=== PATIENT | male | born 1970 | race Caucasian/White ===

== ENCOUNTER 2018-02-15 12:34 | Inpatient (IN) | payer OTHER ==
[2018-02-15] MEDS ORDERED: NS 1,000 ML IV ONE (13:07)
--- NOTE | 2018-02-15 13:09 | EDPHY ---
H & P Stated Complaint: feeling weak/nausea/buttocks sore/rash Time Seen by Provider: 02/15/18 13:00 HPI/ROS: CHIEF COMPLAINT: Presyncope, gluteal rash, generalized weakness HISTORY OF PRESENT ILLNESS: The patient presents to the ED with a one-week history of positional orthostasis and presyncope. The patient also is having a gluteal rash and complaints of generalized weakness. The patient denies any fever, cough or congestion. The patient denies dysuria. The patient reportedly has been applying topical [id number] creams to his rash. He does have a remote history of a scrotal gangrene infection. The patient has neuropathy in his feet chronically. The patient denies any history of fall or trauma. He denies cough or congestion. He denies additional complaints. REVIEW OF SYSTEMS: A comprehensive 10 point review of systems is otherwise negative aside from elements mentioned in the history of present illness. 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 - Social History Smoking Status: Never smoked - Physical Exam Exam: General Appearance: Obese male, no acute distress Eyes: Pupils equal and round no pallor or injection ENT, Mouth: Mucous membranes moist Respiratory: There are no retractions, lungs are clear to auscultation Cardiovascular: Regular rate and rhythm Gastrointestinal: Abdomen is soft and nontender, no masses, bowel sounds normal Neurological: 5/5 strength all 4 extremities Skin: Evidence of stasis dermatitis to the bilateral lower extremities, evidence of a cellulitis and blistering rash noted to the buttocks query pressure injury Musculoskeletal: Neck is supple nontender Extremities: symmetrical, full range of motion Psychiatric: Patient is oriented X 3, there is no agitation Constitutional: Initial Vital Signs Temperature (C) 36.8 C 02/15/18 12:42 Heart Rate 104 H 02/15/18 12:42 Respiratory Rate 20 02/15/18 12:42 Blood Pressure 152/114 H 02/15/18 12:42 O2 Sat (%) 92 02/15/18 12:42 O2 Delivery Mode Room Air,Heliox Allergies/Adverse Reactions: No Known Allergies Allergy (Unverified 02/15/18 12:41) Home Medications: Medication Instructions Recorded Atorvastatin Calcium [Lipitor 10 10 mg PO DAILY 02/15/18 mg (*)] Carvedilol [Coreg (*)] 12.5 mg PO BIDMEAL 02/15/18 Famotidine [Pepcid 20 MG (*)] 20 mg PO BID 02/15/18 Lisinopril [Zestril 5 mg (*)] 5 mg PO DAILY 02/15/18 Spironolactone [Aldactone 25 MG 25 mg PO DAILY 02/15/18 (*)] Warfarin Sodium [Coumadin 5MG (*)] 5 mg PO DAILY16 02/15/18 Medical Decision Making - Diagnostics EKG Interpretation: EKG: Complete interpretation has been separately recorded in the [email or web address] archive. Summary impression: Sinus rhythm, rate 94 ED Course/Re-evaluation: The patient presents to the ED with orthostatic presyncope. The patient is noted to have an acutely elevated creatinine of 4.3. He has mild hyperkalemia with a potassium of 5.9. I did discuss this with his primary care provider David Alfaro. This is a new finding. The patient is chronically anticoagulated for multiple PE. The patient reports he has had normal urination. Patient had an IV established. He received a L of normal saline. Bladder scan was ordered at 2:15 p.m.. The patient is also noted to have cellulitis from a possible mild pressure injury noted to his gluteal area. The patient will require admission to the hospital. Consultation was made with the hospitalist service at 2:20 p.m.. The patient will be given 30 g of Kayexalate from mild hyperkalemia. He will be admitted to the PCU. The patient has no significant postvoid residual noted on bladder scan in the ED. Differential Diagnosis: Differential diagnosis considered includes acute renal failure, medication side effect, dehydration, arrhythmia, cellulitis - Data Points Laboratory Results: Laboratory Results 02/15/18 13:00 02/15/18 13:00 02/15/18 02/15/18 02/15/18 13:00 13:00 13:00 WBC 9.27 10^3/uL 10^3/uL (3.80-9.50) RBC 3.26 10^6/uL L 10^6/uL (4.40-6.38) Hgb 9.9 g/dL L g/dL (13.7-17.5) Hct 31.4 % L % (40.0-51.0) MCV 96.3 fL fL (81.5-99.8) MCH 30.4 pg pg (27.9-34.1) MCHC 31.5 g/dL L g/dL (32.4-36.7) RDW 16.6 % H % (11.5-15.2) Plt Count 152 10^3/uL 10^3/uL (150-400) MPV 9.4 fL fL (8.7-11.7) Neut % (Auto) 90.1 % H % (39.3-74.2) Lymph % (Auto) 3.2 % L % (15.0-45.0) [place] % (Auto) 6.0 % % (4.5-13.0) Eos % (Auto) 0.1 % L % (0.6-7.6) Baso % (Auto) 0.1 % L % (0.3-1.7) Nucleat RBC Rel Count 0.0 % % (0.0-0.2) Absolute Neuts (auto) 8.35 10^3/uL H 10^3/uL (1.70-6.50) Absolute Lymphs (auto) 0.30 10^3/uL L 10^3/uL (1.00-3.00) Absolute Monos (auto) 0.56 10^3/uL 10^3/uL (0.30-0.80) Absolute Eos (auto) 0.01 10^3/uL L 10^3/uL (0.03-0.40) Absolute Basos (auto) 0.01 10^3/uL L 10^3/uL (0.02-0.10) Absolute Nucleated RBC 0.00 10^3/uL 10^3/uL (0-0.01) Immature Gran % 0.5 % % (0.0-1.1) Immature Gran # 0.05 10^3/uL 10^3/uL (0.00-0.10) RBC/WBC/PLT Morphology TNP Platelet Estimate TNP PT 32.4 SEC H SEC (12.0-15.0) INR 3.18 H (0.83-1.16) Sodium 142 mEq/L mEq/L (135-145) Potassium 5.9 mEq/L H mEq/L (3.3-5.0) Chloride 113 mEq/L H mEq/L (97-110) Carbon Dioxide 11 mEq/l L mEq/l (22-31) Anion Gap 18 mEq/L H mEq/L (8-16) BUN 72 mg/dL H mg/dL (7-23) Creatinine 4.3 mg/dL H mg/dL (0.7-1.3) Estimated GFR 15 Glucose 121 mg/dL H mg/dL (70-100) Calcium 9.4 mg/dL mg/dL (8.5-10.4) Medications Given: Discontinued Medications Sodium Chloride (Ns) 1,000 mls @ 0 mls/hr IV ONCE ONE; Wide Open PRN Reason: Protocol Stop: 02/15/18 13:08 Last Admin: 02/15/18 13:16 Dose: 1,000 mls Departure - Departure Disposition: [facility] Inpatient Acute Clinical Impression: Cellulitis, gluteal, Renal failure, acute, Pre-syncope Condition: Good
[2018-02-15 13:16] LABS: PLATELET COUNT 152 10^3/uL (150-400)
--- NOTE | 2018-02-15 13:29 | CPEKG ---
Heart Rate: 94 RR Interval: 638 P-R Interval: 204 QRSD Interval: 96 QT Interval: 344 QTC Interval: 431 P [place]: 33 QRS [place]: 52 T Wave [place]: 43 EKG Severity - OTHERWISE NORMAL ECG - EKG Impression: SINUS RHYTHM EKG Impression: LOW VOLTAGE IN FRONTAL LEADS Electronically Signed By: Austin Baker 15-Feb-2018 14:59:01
[2018-02-15] MEDS ORDERED: SODIUM POLY SULF 15 GM/60 ML BOTTLE PO ONE (14:28)
[2018-02-15 14:36] LABS: INR 3.18 (0.83-1.16); PROTIME(PATIENT) 32.4 SEC (12.0-15.0)
[2018-02-15] MEDS ORDERED: ONDANSETRON DISINTEGRATING 4 MG TAB PO PRN (14:41)
[2018-02-15] MEDS ORDERED: PROMETHAZINE HCL 25 MG/ML INJ IVP PRN (14:41)
[2018-02-15] MEDS ORDERED: ONDANSETRON 4 MG/2 ML VIAL IVP PRN (14:41)
[2018-02-15] MEDS ORDERED: PROMETHAZINE HCL 25 MG TAB PO PRN (14:41)
[2018-02-15] MEDS ORDERED: NS 1,000 ML IV SCH (14:45)
--- NOTE | 2018-02-15 15:28 | PDGENHP ---
History and Physical - Chief Complaint Acute weakness - History of Present Illness Primary care provider: Dr. Adelfo Alfaro HPI: 47-year-old male presents with acute weakness characterized as generalized , with associated chills, nausea, anorexia, unsteady gait, with onset of symptoms approximately 1 week ago and duration persistent and worsening thereafter. The patient reports that prior to his onset of symptoms, he had otherwise been feeling well, and he reports that he has attempted to maintain good oral intake of liquids. He reports that he has had normal urine output. He reports that his bowel movements have been regular, somewhat constipated. He otherwise denies any fever, cough, sore throat, but does endorse bilateral lower extremity paresthesias which are unchanged from his baseline. He reports that his weakness is exacerbated by attempting to ambulate, resulting in lightheadedness which is exacerbated every time he stands. Even at rest, he currently feels fatigued. He reports taking all of his home medications up to the morning of presentation. He reports that he normally takes 3-4 ibuprofen daily, and consistently does so. Electively, the patient's only medical provider is his primary care provider. The patient does not want to see other medical providers, and after 1 visit [facility], he decided that he did not like the methods of treatment and discontinued his care at that location. History Information - Allergies/Home Medication List Allergies/Adverse Reactions: No Known Allergies Allergy (Unverified 02/15/18 12:41) Home Medications: Atorvastatin Calcium [Lipitor 10 mg (*)] 10 mg PO DAILY 02/15/18 [Last Taken Unknown] Carvedilol [Coreg (*)] 12.5 mg PO BIDMEAL 02/15/18 [Last Taken Unknown] Famotidine [Pepcid 20 MG (*)] 20 mg PO BID 02/15/18 [Last Taken Unknown] Lisinopril [Zestril 5 mg (*)] 5 mg PO DAILY 02/15/18 [Last Taken Unknown] Spironolactone [Aldactone 25 MG (*)] 25 mg PO DAILY 02/15/18 [Last Taken Unknown ] Warfarin Sodium [Coumadin 5MG (*)] 5 mg PO DAILY16 02/15/18 [Last Taken Unknown] I have personally reviewed and updated: family history, medical history, social history, surgical history - Past Medical History CHF (Unclear type, patient reports is been quite sometime since he an echocardiogram), hypertension, pulmonary embolism (In 2012, provoked by critical illness and hospitalization) Additional medical history: Testicular gangrene. MRSA. Peripheral neuropathy - Surgical History Additional surgical history: Testicular and penile excision. Lower extremity incision and drainage of chronic wounds - Family History Additional family history: No family history of end-stage renal disease. Numerous second-degree relatives with prostate cancer - Social History Smoking Status: Never smoked Alcohol Use: None Drug Use: None Additional social history: Resides with his mother, co-dependent for care Review of Systems Review of Systems: ROS: 10pt was reviewed & negative except for what was stated in HPI & below Constitutional: Reports: chills, malaise, weakness Gastrointestinal: Reports: nausea Neurological: Reports: paresthesia Physical Exam Physical Exam: Temp Pulse Resp BP Pulse Ox 36.9 C 89 20 149/101 H 92 02/15/18 15:02 02/15/18 15:02 02/15/18 15:02 02/15/18 15:02 02/15/18 15:02 Constitutional: no apparent distress, not in pain, chronically ill appearing, obese, No uncomfortable Eyes: PERRL, anicteric sclera, EOMI Ears, Nose, Mouth, Throat: moist mucous membranes, hearing normal, ears appear normal, no oral mucosal ulcers Cardiovascular: systolic murmur (i/vi at sternum), edema (1+ bilat le), No irregularly irregular, No tachycardia Respiratory: no respiratory distress, no rales or rhonchi, clear to auscultation Gastrointestinal: normoactive bowel sounds, soft, non-tender abdomen, no palpable masses, distension (morbidly with panus), No guarding Genitourinary: no bladder fullness, other (single urethral outlet without penis) Skin: other (pressure injury and skin sloughing R buttock w/ minimal surrounding erythema) Neurologic: AAOx3, No sensation intact bilaterally (bilat paresthesias distal knees) Psychiatric: interacting appropriately Lab Data & Imaging Review 02/15/18 13:00 02/15/18 13:00 WBC 9.27 10^3/uL (3.80-9.50) 02/15/18 13:00 RBC 3.26 10^6/uL (4.40-6.38) L 02/15/18 13:00 Hgb 9.9 g/dL (13.7-17.5) L 02/15/18 13:00 Hct 31.4 % (40.0-51.0) L 02/15/18 13:00 MCV 96.3 fL (81.5-99.8) 02/15/18 13:00 MCH 30.4 pg (27.9-34.1) 02/15/18 13:00 MCHC 31.5 g/dL (32.4-36.7) L 02/15/18 13:00 RDW 16.6 % (11.5-15.2) H 02/15/18 13:00 Plt Count 152 10^3/uL (150-400) 02/15/18 13:00 MPV 9.4 fL (8.7-11.7) 02/15/18 13:00 Neut % (Auto) 90.1 % (39.3-74.2) H 02/15/18 13:00 Lymph % (Auto) 3.2 % (15.0-45.0) L 02/15/18 13:00 [place] % (Auto) 6.0 % (4.5-13.0) 02/15/18 13:00 Eos % (Auto) 0.1 % (0.6-7.6) L 02/15/18 13:00 Baso % (Auto) 0.1 % (0.3-1.7) L 02/15/18 13:00 Nucleat RBC Rel Count 0.0 % (0.0-0.2) 02/15/18 13:00 Absolute Neuts (auto) 8.35 10^3/uL (1.70-6.50) H 02/15/18 13:00 Absolute Lymphs (auto) 0.30 10^3/uL (1.00-3.00) L 02/15/18 13:00 Absolute Monos (auto) 0.56 10^3/uL (0.30-0.80) 02/15/18 13:00 Absolute Eos (auto) 0.01 10^3/uL (0.03-0.40) L 02/15/18 13:00 Absolute Basos (auto) 0.01 10^3/uL (0.02-0.10) L 02/15/18 13:00 Absolute Nucleated RBC 0.00 10^3/uL (0-0.01) 02/15/18 13:00 Immature Gran % 0.5 % (0.0-1.1) 02/15/18 13:00 Immature Gran # 0.05 10^3/uL (0.00-0.10) 02/15/18 13:00 RBC/WBC/PLT Morphology TNP 02/15/18 13:00 Platelet Estimate TNP 02/15/18 13:00 PT 32.4 SEC (12.0-15.0) H 02/15/18 13:00 INR 3.18 (0.83-1.16) H 02/15/18 13:00 Sodium 142 mEq/L (135-145) 02/15/18 13:00 Potassium 5.9 mEq/L (3.3-5.0) H 02/15/18 13:00 Chloride 113 mEq/L (97-110) H 02/15/18 13:00 Carbon Dioxide 11 mEq/l (22-31) L 02/15/18 13:00 Anion Gap 18 mEq/L (8-16) H 02/15/18 13:00 BUN 72 mg/dL (7-23) H 02/15/18 13:00 Creatinine 4.3 mg/dL (0.7-1.3) H 02/15/18 13:00 Estimated GFR 15 02/15/18 13:00 Glucose 121 mg/dL (70-100) H 02/15/18 13:00 Calcium 9.4 mg/dL (8.5-10.4) 02/15/18 13:00 Visualized and Interpreted EKG results: Yes EKG Interpretation: Positive for: other (NSR w/ low voltage, no QRS widening) Assessment & Plan Assessment: 47-year-old male presenting with acute kidney injury and acute metabolic acidosis, hyperkalemia Plan: 1. Acute kidney injury. New problem this provider, further workup indicated. Evidenced by creatinine 4.3, BUN 72 with resultant metabolic acidosis and hyperkalemia -potential etiology includes reduced renal perfusion secondary to NSAID, KAY- inhibitor, spironolactone, diuretic, possibly with precipitating illness or infection -discussed with Dr. Judith Tatum, she has recommended 2 amps of bicarb, normal saline, agrees with renal ultrasound, holding renal toxic medications and repeating renal panel at 6:00 p.m. -get fractional excretion of urea -monitor I& O, daily weights sign -obtain baseline creatinine level from PCP office 2. Hyperkalemia. Acute, discussed with Dr. Hema Kebede, he has ordered the patient for 30 g of Kayexalate emergency department, will be repeating potassium level at 6:00 p.m., currently normal EKG, monitor on telemetry 3. Metabolic acidosis. Acute, secondary to acute kidney injury, give fluids, 2 amps of bicarb 4. Congestive heart failure. Unclear type, no current evidence of exacerbation but unclear whether patient's cardiac output has recently changed, patient reports that he has not had an echo from his primary care provider quite some time, does not have a clinical biostatistician -get echocardiogram for further evaluation -get outpatient records from PCP office 5. Pressure injury. Present on admission, right buttock, a surrounding erythema potentially cellulitic, but normal white blood cell count -get wound care consult -check procalcitonin, blood cultures -hold on antibiotics, monitor clinically for any evolution of cellulitis 6. Morbid obesity. Increase patient's risk of worsening morbidity and/or mortality, dietary consult for renal diet as well as dietary coaching 7. Hypertension. Chronic, hold patient's KAY inhibitor, spironolactone, continue carvedilol 8. Chronic neuropathy. Continue home medication once reconciled, potentially at lower doses given renal impairment 9. History of pulmonary embolism. Chronically systemically anticoagulated, continue Coumadin and INR monitoring, hold Coumadin this afternoon given that supratherapeutic INR Diet. Renal Prophylaxis. High risk patient, currently on Coumadin Code. Full per patient, mother is POA Disposition. Anticipated discharge uncertain this time, anticipated length stay is greater than 48 hr for reasonable medical necessity including acute kidney injury with high risk comorbid metabolic acidosis, hyperkalemia, pressure injury, morbid obesity.
[2018-02-15] MEDS ORDERED: VANCOMYCIN 2 GM in D5W 500 ML IV SCH (15:30)
[2018-02-15] MEDS ORDERED: SODIUM BICARBONATE 50 MEQ/50 ML SYR IVP ONE ×2 (15:45→16:30)
[2018-02-15] MEDS ORDERED: NICOTINE POLACRILEX 2 MG GUM B PRN (15:50)
--- NOTE | 2018-02-15 16:37 | WOCRNPDOC ---
[facility] Advanced Assessment Note - Skin Integrity Problem, Advanced Assess Left Lower Sacrum Pressure Injury Exudate Amount: Minimal Exudate Color: Reddish/Yellow Exudate Characteristic(s): Serosanguinous Wound Bed Color: Black, Red, Yellow, White Wound Bed Constitution: Red/Bent - Non Granular Tissue (30%), Stable Eschar (70% ) Wound Edges: Not Attached (epithilium continuing to peel off), Irregular Site Measurement - Head-to-Toe Length X Width X Depth (cm): 5.9x9x0.3 Pressure Injury Stage: Unstageable Pressure Injury Present on Admit: Yes Skin Integrity Problem Comment: Unstageable pressure injury to both left and right sides of gluteal cleft, with eschar on the left and open area without eschar on the right. Pressure injury likely because patient states he sits in his recliner a lot at home, and family present in room (daughter and daughter in law) at time of assessment confirmed. Patient was incontinent of liquid stool during assessment, but unknown if this is normal for patient. Orders written for offloading, including side to side turns while in bed and repositioning in chair with cushion. Left wounds open to air due to incontinence. Education provided to patient re: pressure injuries present, the cause of the wounds, treatment, importance of mobility, and plan of care with questions answered. Wound care will round again later this week. Mindy ARELLANO assisted and supervised. Right Proximal Lower Sacrum Pressure Injury Wound Bed Color: Black, Bent, Red, Yellow Wound Bed Constitution: Red/Bent - Non Granular Tissue (70%), Stable Eschar (30% ) Wound Edges: Not Attached, Irregular Site Measurement - Head-to-Toe Length X Width X Depth (cm): 3.6x2.1x0 Pressure Injury Stage: Unstageable Pressure Injury Present on Admit: Yes Skin Integrity Problem Comment: This wound to right lower sacrum is distinct from other pressure injuries of this assessment, but same etiology. Wound care will round again later this week. Mindy ARELLANO assisted and supervised. Right Distal Sacrum Pressure Injury Wound Bed Color: Red, Yellow Wound Bed Constitution: Red/Bent - Non Granular Tissue (85%), Adhered Slough (15 %) Wound Edges: Irregular Site Measurement - Head-to-Toe Length X Width X Depth (cm): 4.1x2.2x0.2 Pressure Injury Stage: Stage 3 Pressure Injury Present on Admit: Yes Skin Integrity Problem Comment: Pressure injury to lower sacrum, same etiology as other reported pressure injuries. No eschar noted on this wound. Wound care will round again this week. Mindy ARELLANO assisted and supervised.
[2018-02-15] MEDS ORDERED: SODIUM BICARBONATE 75 MEQ in 1/2 NS 1,000 ML IV SCH (16:45)
--- NOTE | 2018-02-15 16:47 | PDCONSULT ---
Coating Manager Note: Assessment/Plan: [place]: unknown baseline Cr, up to 4.3 currently with hyperkalemia and acidosis. He continues to have good UOP and denies being oliguric. Unclear etiology although concerning for prerenal in setting of poor oral intake and continued lisinopril and spironolactone. - No emergent need for HD. - Will continue IVFs, will change to 1/2NS with bicarb. - Will check renal US, UA, urine PCR, urine sodium, CK. - Will continue to monitor, repeat labs this evening. - Holding lisinopril, spironolactone and NSAIDs for now. - Avoid hypotension and nephrotoxins. Hyperkalemia: K 5.9, got 1L NS and kayexalate. - Will give 2 amps of bicarb now. - WIll place on IVFs with bicarb. - Will continue to monitor, repeat shortly. Metabolic acidosis: likely due to [place]. - Getting bicarb as above. - WIll check VBG and lactate in am in addition to rechecking BMP. HTN: BP ok for now, holding lisinopril and spironolactone, ok to continue BB, will continue to monitor. Hypervolemia: for now holding diuretics and giving IVFs, agree with getting echo. Thank you for the interesting consult. Nephrology will continue to follow, please call if you have any additional questions or concerns. H & P Stated Complaint: feeling weak/nausea/buttocks sore/rash Time Seen by Provider: 02/15/18 13:00 HPI/ROS: HPI: Mr. Royal is a 47 yo M with h/o CHF, HTN, MRSA, testicular gangrene, and morbid obesity who presented today to ER with complaints of weakness. Pt states that he has been feeling poorly for about two weeks, feeling fatigued and very weak, could not even get up to go to the bathroom at home. He has not been eating or drinking well for a few days, although daughters think it has been longer than that. He denies any rash, synovitis, dizziness, chest pain or dyspnea. He has continued taking his meds at home, including lisinopril, spironolactone, and ibuprofen. He denies any history of renal disease but does not know his baseline kidney function. Here, his Cr is up to 4.3, CO2 down to 11, K up to 5.9. He has been given kayexalate and 1L NS. He states that he had a large urination in ER, had been urinating normally at home except a little darker than usual, no hematuria or dysuria. ROS: positive per HPI and for pain over buttocks, rest of 10-point ROS negative - Personal History Current Tetanus/Diphtheria Vaccine: Unsure - Medical/Surgical History Hx Asthma: No Hx Chronic Respiratory Disease: No Hx Diabetes: No Hx Cardiac Disease: No Hx Renal Disease: No Hx Cirrhosis: No Hx Alcoholism: No Hx HIV/AIDS: No Hx Splenectomy or Spleen Trauma: No Other PMH: gangrene to testicle, PEs, HTN, CHF - Social History Smoking Status: Never smoked - Physical Exam Exam: General: alert and oriented, no acute distress, morbidly obese Eyes; EOMI, PERRL OP: Clear, MMM Neck: supple, no thyromegaly CV: RRR, +2/4 radial and dorsalis pedis pulses, +1 edema BLE Resp: CTA bilat, nonlabored respirations on RA Abd: Soft, NT/ND Neuro; CN II-XII grossly intact, no asterixis Psych: cooperative, appropriate mood and affect Skin: no rash, chronic venostasis changes in both legs, +pressure ulcers noted on buttocks Constitutional: Initial Vital Signs Temperature (C) 36.8 C 02/15/18 12:42 Heart Rate 104 H 02/15/18 12:42 Respiratory Rate 20 02/15/18 12:42 Blood Pressure 152/114 H 02/15/18 12:42 O2 Sat (%) 92 02/15/18 12:42 O2 Delivery Mode Room Air,Heliox Allergies/Adverse Reactions: No Known Allergies Allergy (Unverified 02/15/18 12:41) Home Medications: Medication Instructions Recorded Atorvastatin Calcium [Lipitor 10 10 mg PO DAILY 02/15/18 mg (*)] Carvedilol [Coreg (*)] 12.5 mg PO BIDMEAL 02/15/18 Famotidine [Pepcid 20 MG (*)] 20 mg PO BID 02/15/18 Lisinopril [Zestril 5 mg (*)] 5 mg PO DAILY 02/15/18 Spironolactone [Aldactone 25 MG 25 mg PO DAILY 02/15/18 (*)] Warfarin Sodium [Coumadin 5MG (*)] 5 mg PO DAILY16 02/15/18 Lab and Imaging 02/15/18 13:00 02/15/18 13:00 WBC 9.27 10^3/uL (3.80-9.50) 02/15/18 13:00 RBC 3.26 10^6/uL (4.40-6.38) L 02/15/18 13:00 Hgb 9.9 g/dL (13.7-17.5) L 02/15/18 13:00 Hct 31.4 % (40.0-51.0) L 02/15/18 13:00 MCV 96.3 fL (81.5-99.8) 02/15/18 13:00 MCH 30.4 pg (27.9-34.1) 02/15/18 13:00 MCHC 31.5 g/dL (32.4-36.7) L 02/15/18 13:00 RDW 16.6 % (11.5-15.2) H 02/15/18 13:00 Plt Count 152 10^3/uL (150-400) 02/15/18 13:00 MPV 9.4 fL (8.7-11.7) 02/15/18 13:00 Neut % (Auto) 90.1 % (39.3-74.2) H 02/15/18 13:00 Lymph % (Auto) 3.2 % (15.0-45.0) L 02/15/18 13:00 [place] % (Auto) 6.0 % (4.5-13.0) 02/15/18 13:00 Eos % (Auto) 0.1 % (0.6-7.6) L 02/15/18 13:00 Baso % (Auto) 0.1 % (0.3-1.7) L 02/15/18 13:00 Nucleat RBC Rel Count 0.0 % (0.0-0.2) 02/15/18 13:00 Absolute Neuts (auto) 8.35 10^3/uL (1.70-6.50) H 02/15/18 13:00 Absolute Lymphs (auto) 0.30 10^3/uL (1.00-3.00) L 02/15/18 13:00 Absolute Monos (auto) 0.56 10^3/uL (0.30-0.80) 02/15/18 13:00 Absolute Eos (auto) 0.01 10^3/uL (0.03-0.40) L 02/15/18 13:00 Absolute Basos (auto) 0.01 10^3/uL (0.02-0.10) L 02/15/18 13:00 Absolute Nucleated RBC 0.00 10^3/uL (0-0.01) 02/15/18 13:00 Immature Gran % 0.5 % (0.0-1.1) 02/15/18 13:00 Immature Gran # 0.05 10^3/uL (0.00-0.10) 02/15/18 13:00 RBC/WBC/PLT Morphology TNP 02/15/18 13:00 Platelet Estimate TNP 02/15/18 13:00 PT 32.4 SEC (12.0-15.0) H 02/15/18 13:00 INR 3.18 (0.83-1.16) H 02/15/18 13:00 Sodium 142 mEq/L (135-145) 02/15/18 13:00 Potassium 5.9 mEq/L (3.3-5.0) H 02/15/18 13:00 Chloride 113 mEq/L (97-110) H 02/15/18 13:00 Carbon Dioxide 11 mEq/l (22-31) L 02/15/18 13:00 Anion Gap 18 mEq/L (8-16) H 02/15/18 13:00 BUN 72 mg/dL (7-23) H 02/15/18 13:00 Creatinine 4.3 mg/dL (0.7-1.3) H 02/15/18 13:00 Estimated GFR 15 02/15/18 13:00 Glucose 121 mg/dL (70-100) H 02/15/18 13:00 Calcium 9.4 mg/dL (8.5-10.4) 02/15/18 13:00 Visualized and Interpreted EKG results: Yes EKG Interpretation: Positive for: other (No peaked T waves)
--- NOTE | 2018-02-15 17:00 | PDMN ---
Medical Necessity Medical necessity: Pt meets IP criteria per MD; est los >2 mn for eval/tx of acute kidney injury, metabolic acidosis, hyperkalemia & pressure injury; admit for further workup/monitoring, Wound Care consult, IVFs & therapies; comorbid morbid obesity, PEs, HTN, chronic neuropathy, CHF; per H&P & order 02/15/18
[2018-02-15] MEDS: NICOTINE 21 MG/24 HR PATCH TD SCH (17:11)
[2018-02-15] MEDS: SODIUM BICARBONATE 75 MEQ in 1/2 NS 1,000 ML IV SCH (17:17)
--- NOTE | 2018-02-15 18:01 | WOCRNPDOC ---
WOCRN Advanced Assessment Note - Skin Integrity Problem, Advanced Assess Right Distal Lower Sacrum Pressure Injury Dressing Type: Open to Air Skin Integrity Problem Comment: Left all sacral wounds open to air until tomorrow when patient's Kayexalate may have worn off and stooling will be under control. Discussed plan of care with Erika DA SILVA.
[2018-02-15] MEDS ORDERED: CARVEDILOL 3.125 MG TAB PO ONE (18:22)
--- NOTE | 2018-02-15 18:37 | CPEKG ---
Heart Rate: 105 RR Interval: 571 P-R Interval: 192 QRSD Interval: 96 QT Interval: 356 QTC Interval: 471 P Charlotte: 35 QRS Charlotte: 70 T Wave Charlotte: 63 EKG Severity - ABNORMAL ECG - EKG Impression: SINUS TACHYCARDIA EKG Impression: VENTRICULAR BIGEMINY EKG Impression: LOW VOLTAGE IN FRONTAL LEADS Electronically Signed By: Edwardo Chambers 16-Feb-2018 11:18:04
[2018-02-15 21:26] LABS: CREATINE KINASE 79 IU/L (0-224)
[2018-02-15] MEDS: ATORVASTATIN CALCIUM 10 MG TAB PO SCH (21:53)
[2018-02-15] MEDS ORDERED: HEPARIN 5,000 UNIT/0.5 ML INJ SC SCH (22:00)
[2018-02-16 04:28] LABS: INR 3.15 (0.83-1.16); PROTIME(PATIENT) 32.2 SEC (12.0-15.0)
[2018-02-16 04:31] LABS: PLATELET COUNT 115 10^3/uL (150-400)
[2018-02-16] MEDS: SODIUM BICARBONATE 75 MEQ in 1/2 NS 1,000 ML IV SCH (07:27)
[2018-02-16] MEDS: CARVEDILOL 3.125 MG TAB PO SCH ×2 (10:27→18:09)
[2018-02-16] MEDS: NICOTINE 21 MG/24 HR PATCH TD SCH (10:27)
--- NOTE | 2018-02-16 11:12 | ECHO ---
[email or web address] [address] [address] Main: [phone] Fax: Transthoracic Echocardiogram Name: HAILEE NOLAND MR#: [id number] Study Date: 02/16/2018 Study Time: 09:06 AM Date of : 1970 Age: 47 year(s) Height: 177.8 cm (70 in.) Weight: 148.78 kg (328 lb.) BSA: 2.58 m2 Gender: Male Examination: Echo Indication: Acute SHAWNEE, CHF Image Quality: Contrast: Requested by: Carlos Del Real BP: 123 mmHg/56 mmHg Heart Rate: Rhythm: Indication: Acute SHAWNEE, CHF Procedure Staff Helper Coordinator: Pete Stevens RDCS Reading Physician: Robb Nelson MD Requesting Provider: Conclusions: Normal size left ventricle. No LV hypertrophy. Normal global systolic LV function. EF is 64 %. No regional wall motion abnormality. Normal diastolic LV function. Flattened interventricular septum consistent with right ventricular pressure and/or volume overload free wall. The left atirum is borderline dilated. The mitral valve is normal in appearance and function. There is no mitral valve regurgitation. The aortic valve is normal in appearance and function. There is no aortic valve regurgitation. The pulmonary artery pressure is severely increased. Right ventricular systolic pressure measures 94mmHg. The pulmonic valve is normal in appearance and function. No previous available Measurements: Chambers Valvular Assessment AV/MV Valvular Assessment TV/PV Normal Normal Normal Name Value Range Name Value Range Name Value Range Ao Winifred (MM): 3.3 cm (2.2 cm-3.7 AV Vmax: 1.37 m/s (1 m/s-1.7 TR Vmax: 4.88 mm/s ( - ) cm) m/s) TR PGmax: 89 mmHg ( - ) IVSd (2D): 0.7 cm (0.6 cm-1.1 AV maxP mmHg ( - ) syst. PAP: 94 mmHg ( - ) cm) LVOT Vmax: 0.78 m/s (0.7 m/s-1.1 PV Vmax: 1.10 m/s (0.6 m/s-0.9 LVDd (2D): 5.3 cm (4.2 cm-5.9 m/s) m/s) cm) MV E Vmax: 1.00 m/s ( - ) PV PGmax: 5 mmHg ( - ) LVDs (2D): 3.4 cm (2.1 cm-4 MV A Vmax: 0.80 m/s ( - ) cm) MV E/A: 1.25 ( - ) Patient: HAILEE NOLAND Study Date: 02/16/2018 Page 1 of 2 09:06 AM LVPWd (2D): 1.0 cm (0.6 cm-1 cm) LVEF (2D): 64 (>=54 %) RVDd(2D): 4.8 cm (1.9 cm-3.8 cmmm) Continued Measurements: Chambers Valvular Assessment AV/MV Valvular Assessment TV/PV Name Value Name Value Name Value LADs Lon.1 cm MV E' Septal: 0.06 m/s CVP (est.): 5 mmHg LA Area: 24.9 cm2 MV E/E' Septal: 16.30 LA Volume: 89 ml MV E/E' Lateral: 10.30 LA Volume Index: 34.5 ml/m2 Findings: Left Ventricle: Normal size left ventricle. No LV hypertrophy. Normal global systolic LV function. EF is 64 %. No regional wall motion abnormality. Normal diastolic LV function. Right Ventricle: Mildly to moderately dilated right ventricle. Flattened interventricular septum consistent with right ventricular pressure and/or volume overload free wall. Left Atrium: The left atirum is borderline dilated. Right Atrium: The right atrium is mildly dilated. Mitral Valve: The mitral valve is normal in appearance and function. There is no mitral valve regurgitation. Aortic Valve: The aortic valve is normal in appearance and function. There is no aortic valve regurgitation. Tricuspid Valve: Mild tricuspid regurgitation is present. The pulmonary artery pressure is severely increased. Right ventricular systolic pressure measures 94mmHg. Pulmonic Valve: The pulmonic valve is normal in appearance and function. Aorta: The aorta is normal. Pericardium: No pericardial effusion. (No Signature Object) Patient: HAILEE NOLAND Study Date: 02/16/2018 Page 2 of 2 09:06 AM [id number]
--- NOTE | 2018-02-16 13:41 | HOSPPROG ---
Hospitalist Progress Note Assessment/Plan: 47-year-old presenting with a week of generalized weakness, nausea and unsteady gait. He states his symptoms started with some abnormal bowel movements and abdominal issues which progressed to a point where he could barely get out of bed. He was found to be in renal failure on admission to the hospital. # acute renal failure. Unclear if he has had chronic renal failure in the past as I am unable to find any previous blood work, except for INRs. I suspect his renal failure is a combination of dehydration, hypotension and medications. * Appreciate Nephrology * Continue to hydrate * Avoid nephrotoxins including anti-inflammatories * Hold spironolactone and lisinopril * Continue to monitor creatinine # history of pulmonary embolism on long-term Coumadin followed by Dr. Alfaro * Therapeutic INR # Anemia, unclear etiology. No obvious acute bleeding but patient has has significant bleeding Duodenal ulcer in the recent past. Possible ACD 2/2 renal failure, but I am not sure how long he has had renal failure. * Check iron studies, B12, etc * consider GI eval if heme positive and continues to drop. # severe pulmonary hypertension with RVSP of 94 on echocardiogram, likely due to patient obesity and chronic sleep apnea as well as history of PE * Discussed with Cardiology who will see patient * At this time will hydrate and follow renal function * Perhaps repeat echocardiogram in the future when patient is more stable * He would likely benefit from follow-up with a shop blacksmith however it sounds like he has not wanted to seek care from other medical providers except for his PCP # morbid obesity # coccyx wounds, noted on admission and followed by wound care, the seemed to be fairly large for development over 1 week will continue to have wound care see him and consider surgery if they feel that would be benefits surely to the patient # dyslipidemia on atorvastatin # obstructive sleep apnea. His PCP has attempted to get him a sleep study but the patient has not set that up yet # peripheral neuropathy involving both of his legs # gout # fatty liver disease # noncompliance, patient has not seen his primary care physician in almost 4 years Subjective: Patient new to me and chart reviewed. He admits to only being sick for a week however he looks fairly debilitated I suspect it has been longer than that. Objective: Vital Signs Temp Pulse Resp BP Pulse Ox 36.6 C 80 14 86/53 L 92 02/16/18 11:05 02/16/18 11:05 02/16/18 11:05 02/16/18 11:05 02/16/18 11:50 Laboratory Results 02/16/18 03:35 02/16/18 03:35 02/15/18 02/16/18 02/17/18 05:59 05:59 05:59 Intake Total 2404 Output Total 1100 1 Balance 1304 -1 PT 32.2 SEC (12.0-15.0) H 02/16/18 03:35 INR 3.15 (0.83-1.16) H 02/16/18 03:35 - Physical Exam Constitutional: obese Eyes: PERRL Ears, Nose, Mouth, Throat: moist mucous membranes Cardiovascular: regular rate and rhythym, edema Respiratory: no respiratory distress, reduced air movement Gastrointestinal: soft, non-tender abdomen Skin: warm Neurologic: AAOx3 Psychiatric: interacting appropriately ICD10 Worksheet Patient Problems: Problems Problem Status Onset Cellulitis, gluteal Acute Pre-syncope Acute Renal failure, acute Acute
[2018-02-16] MEDS ORDERED: CANN-EASE 2 GM TUBE TP PRN (16:22)
--- NOTE | 2018-02-16 17:15 | ASMTCMCOM ---
CM Note CM Note Notes: 02/16/2018 Case Management Note Discussed pt during multi disciplinary rounds this morning. Pt admitted with weakness, renal failure and gluteal cellulitis. Pt has stage 3 wound on his sacral area. Awaiting ID consult for possible IV abx d/c needs. Pt will likely have d/c wound care needs. Met w/pt daughter Michelle [phone] and her fiancee Autumn, daughter Mona [phone] and daughter Sadie [phone] this morning. Pt is changing his MDPOA to his three daughters from his mother who per pt and daughters is experiencing memory issues. Provided HealthCare Decision Booklet for pt to fill out, pt declined assistance from case management completing the MDPOA section. Requested pt provide copy to case management to enter into chart once he has filled our form and signed it. Records Management Engineer to visit with pt for assistance. Pt reports living with his mother Sada [phone] and is her primary caregiver. Pt reports independence with ADL's prior to admission. Case management d/c poc: to be determined pending outcome of consults and eval recommendations from PT and OT. Case Management to follow. Date Signed: 02/16/2018 02:25 PM Electronically Signed By:Misti Vick RN
--- NOTE | 2018-02-16 17:16 | GCON ---
[f rep st] CONSULTATION REASON FOR CONSULTATION: I have been asked to do a cardiovascular consult for him for his cardiovasc ular status and multiple complaints. HISTORY OF PRESENT ILLNESS: The patient has been weak for over a month. He also complained of being constipated at home. Then he had one day when he came into the hospital and the chief complaints th en was that his legs were very wobbly and he did not have the strength that he normally enjoys. He i s a fellow who does not like going to doctors. His mother whom he lives with thought he was really s ick several days he actually came to the hospital and he would not come in. She told me that she was begging him to come in or at least let her call the doctor and she would not do that, and that was b ecause he had been vomiting for 2 days by that time, and he has had this constipation. His mother sa salmon he has also been losing weight and he agrees with that. He states that he does not have shortness of breath, but I do not think he is moving much at all, very often or very far and that is limiting him his ability to tell if he is short of breath or not, but clearly, he must be profoundly short of breath. He denies any kind of chest pain, jaw pain, arm, pleuritic chest pain. He denies fever, chi lls, or cough. He denies hemoptysis. He does not have a history of tuberculosis. No history of topher p venous thrombosis. No history of pulmonary embolic disease. He was seen 6 years ago for MRSA at [facility] and it was after that time that he had to retire from work with a disability. He interiano s been taking his medications, but he does not see doctors. He denies any increased swelling in his chronically swollen legs. He denies PND. Denies orthopnea, and when I am visiting with him, he is a ctually lying flat in the hospital bed without any distress. When I look over the records, it says he has unsteady gait and some anorexia for a week before he cam e into the hospital. He has changed the story on that for now, but somewhere along the way is the [facility] answer to this question is to how long he has actually had it. He often is tired however. His cardiac risk factors are positive for hypertension, hyperuricemia, and a family history of premat ure coronary artery disease, and obesity. His cardiac factors are positive for tobacco use, which he uses. Cardiac risk factors according to him are negative for diabetes mellitus, for hyperlipidemia, for smoking history, for any known coronary artery disease. ALLERGIES: None. MEDICATIONS: Include Zestril, Aldactone, warfarin, Pepcid, Coreg, Lipitor. PAST SURGICAL HISTORY: He has had an orchidectomy in the past. He has had surgery for severe infect ions of the lower extremities. FAMILY HISTORY: His maternal great grandmother had a myocardial infarction at age 45. No one else h as a history of early coronary artery disease. REVIEW OF SYSTEMS: A 10-point review of systems negative, except as noted above and in the chart. H is review of systems is positive for history of anemia, history of hepatitis, history of hypernatremi a, history of hyperuricemia times many years, history of cellulitis involving his legs and genitals, longstanding acute and chronic renal failure, and intermittently very significant weight loss of up t o 100 pounds. SOCIAL HISTORY: His mother was born in [place] and she graduated from [employer] in 1955. She is here with him right now. She worked for [employer] for 26 years and she had 5 children. He was t he smallest born child, but now is the biggest child. She raised her family in [place] and they went to [employer]. He worked at [employer] for 26 years and continued to do that until 6 years ago when he had disability due to his infections and his surgical procedures in the lo wer extremities and testicle. There was a very significant MRSA infection at that time. He lives wi th his mother in [place]. He does not exercise. He does not smoke significant amounts of tobacco, but he does chew tobacco. He does not drink significant amounts of alcohol. PHYSICAL EXAMINATION: VITAL SIGNS: Blood pressure is 86/53. Earlier blood pressure was 123/56. Hi s heart rate is 80. Earlier, it was 76. Respiratory rate is 14. He is afebrile. HEENT: Pupils eq ual and reactive. Mucous membranes and mouth moist. NECK: Supple. CARDIOVASCULAR: S1, S2 barely a udible. No clearcut murmurs. LUNGS: Decreased breath sounds bilaterally. Dullness at the bases. BACK: No CVA tenderness. ABDOMEN: Massive, soft, nontender. No clearcut masses. EXTREMITIES: Ch ronic stasis changes with significant peripheral edema, and brawny edema it is. He has multiple lowe r extremity scars. PSYCHIATRIC: No obvious anxiety or depression. NEUROLOGIC: He clearly is weak, deconditioned, but he is moving all extremities and has no obvious cranial neuropathies. No focal n eurologic deficits. LABORATORY/IMAGING: Creatinine was 4.3, down to 3.1, BUN was 72, down to 60. Old records that were reviewed back from 2010, showed that he had acute on chronic respiratory failur e, cellulitis in his legs, orchiectomy, multiple surgical debridements of the lower extremities, weig ht loss of over 100 pounds, and many of the same problems he has now, anemia, weakness, history of go ut. On this admission, his white count is 6.5, hematocrit 25, platelet count 115. Troponin 0.03, th en 0.06. Sodium 144, potassium 4.3, chloride 111, CO2 16, BUN 60, creatinine 3.1 today. As mentione d earlier, BUN on admission was 72 and creatinine was 4.3. Liver function tests were not elevated. Total protein is low at 6 with albumin of 2.9. TSH is 2.45. INR is 3.15. Echocardiogram shows normal LV systolic function, tricuspid regurgitation. RV systolic pressure gutierrez mated at 94 and maybe even higher than that assuming that they did not use an elevated right atrial p ressure, which clearly his right atrial pressure would be elevated at this point. He has a flattened interventricular septum consistent with RV pressure and/or volume overload. Mild to moderately dila ana maria right ventricle, but normal diastolic LV function, normal left ventricular systolic function with ejection fraction of 64%. Chest x-ray shows inspiratory phase is poor. Costophrenic gutters are sharp. No obvious pulmonary e vladislav. Poor quality film. Electrocardiogram shows sinus tachycardia, bigeminy. ASSESSMENT: 1. Chronic respiratory failure. 2. Pulmonary hypertension. 3. Massive obesity. 4. Hypertension. 5. Anemia. 6. Tobacco abuse. 7. Family history of premature coronary artery disease. 8. Chronic peripheral edema. 9. Chronic renal insufficiency. 10. Fatigue. 11. Weakness, history of constipation and vomiting. PLAN: The patient came in because he was getting some constipation. He was vomiting for 2 days, and then, he felt very wobbly. He is traditionally very weak and was acutely ill in that 3 to 5 day per iod. That is being evaluated at this time and when he came in, his creatinine was up to 4.3. It is down to 3.1 now. He does not have an acute coronary syndrome. He does not have systolic congestive heart failure. His diastolic function is quite good, but he does have right heart failure and cor pu lmonale. He does not go to doctors and has not been for years and his mother begs him to go, but he is not interested, so I think we should work hard to try to do anything we can to help him while he i s here. 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 I would like to do a pharmacologic nuclear study. He certainly has major risk factors for coronary d isease, and while he is here, it will be helpful to document the status of coronary arteries as is po ssible through that study. 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 I cannot believe he does not have sleep apnea, but perhaps it is true, and he will be evaluated by [facility] Pulmonary service while he is here and this is something maybe we can get him to do over time to lauren velasquez sleep apnea if he really does have obstructive sleep apnea anyway. He does not have asthma. He is certainly set up for having chronic pulmonary embolic disease, but he is on Coumadin and he is well therapeutic. Hypertension. The patient does have hypertension. Right now, it is stable and not causing him a pro blem while he is resting in the hospital. Obesity. We need to try to get him to lose weight. He is not particularly motivated about this, but it is something we will not give up on over time. If he could do anything to improve that, it would help him enormously. He came in with chronic renal insufficiency and an acute picture, which is improving with fluids, hyd ration, and the management that he is getting. He does have an anemia and it would be worth looking to see what the cause of the anemia is, and we w ill try to heme test his stools while he is here, and do some iron studies, etc. We will all work together in getting this evaluation done and return him to home which is what he wou ld like to do as soon as possible. He has been using tobacco and that is something we have talked about, and he tells me he is going to stop. I certainly hope he can, and I know he can, but I hope he will, and we will see what develops along that line. All his and his mother's questions have been answered. We will get Pulmonary to see him to get their opinions of what can help. We will do a pharmacologic nuclear study and we will follow him closely. /[id number]/MODL
--- NOTE | 2018-02-16 18:13 | SOAPPROG ---
SOAP Progress Note Assessment/Plan: Assessment/Plan: The patient is a 47 y/o M with a known h/o CHF, HTN, and morbid obesity who presented with weakness on 02/15 found to have SHAWNEE most likely 2/2 to pre-renal azotemia in the setting of poor po intake on diuretics vs ATN or AIN 2/2 to NSAID use. In addition, it appears the patient may have a UTI. SHAWNEE: -unknown baseline Cr, up to 4.3 on presentation now trending down to 3.1 with IVF -renal US very difficult study due to body habitus and it appears kidneys are small, will hold on further imaging for now -UA shows bacteruria, culture sent -avoid contrast and NSAIDs -monitor UO, may bolus if needed -continue to monitor, no acute indication for dialysis Hypotension -holding spironolactone, lisinopril -cardiology consult appreciated -hold fluids for now -keep MAP>65 Hyperkalemia -kayexalate given yesterday -continue renal diet Acidosis -2/2 to renal failure -will change to po if fluids held Will continue to follow, please contact if ?'s #[phone]. 02/16/18 18:19 Subjective: Patient feeling a lot better. States he is urinating a lot more. Feels like he may have broken his big toe and getting an XRAY. Objective: Vital Signs Temp Pulse Resp BP Pulse Ox 36.3 C 82 14 122/71 H 96 02/16/18 16:00 02/16/18 16:00 02/16/18 16:00 02/16/18 16:00 02/16/18 16:00 Laboratory Results 02/16/18 03:35 02/16/18 03:35 02/15/18 02/16/18 02/17/18 05:59 05:59 05:59 Intake Total 2404 Output Total 1100 1 Balance 1304 -1 PT 32.2 SEC (12.0-15.0) H 02/16/18 03:35 INR 3.15 (0.83-1.16) H 02/16/18 03:35 Physical Exam - Physical Exam General Appearance: WD/WN, alert, obese EENT: PERRL/EOMI Neck: non-tender, full range of motion, supple Respiratory: chest non-tender, decreased breath sounds Cardiac/Chest: normal peripheral pulses, regular rate, rhythm, edema Abdomen: normal bowel sounds, non-tender, soft Skin: normal color, warm/dry Extremities: normal range of motion, non-tender Neuro/Psych: no motor/sensory deficits, normal mood/affect, oriented x 3 ICD10 Worksheet Patient Problems: Problems Problem Status Onset Cellulitis, gluteal Acute Pre-syncope Acute Renal failure, acute Acute
[2018-02-16] MEDS: ACETAMINOPHEN 325 MG TAB PO PRN (20:49)
[2018-02-16] MEDS: ATORVASTATIN CALCIUM 10 MG TAB PO SCH (20:50)
[2018-02-16] MEDS: SODIUM BICARBONATE 650 MG TAB PO SCH (20:50)
[2018-02-17] MEDS: ACETAMINOPHEN 325 MG TAB PO PRN ×2 (00:41→08:01)
[2018-02-17] MEDS: SODIUM BICARBONATE 650 MG TAB PO SCH ×2 (09:24→21:22)
[2018-02-17] MEDS: CARVEDILOL 3.125 MG TAB PO SCH ×2 (09:25→17:24)
[2018-02-17] MEDS: NICOTINE 21 MG/24 HR PATCH TD SCH (09:26)
[2018-02-17 09:48] LABS: INR 2.94 (0.83-1.16); PROTIME(PATIENT) 30.5 SEC (12.0-15.0)
[2018-02-17] MEDS ORDERED: REGADENOSON 0.4 MG/5 ML SYR IVP ONE (10:00)
--- NOTE | 2018-02-17 12:11 | SOAPPROG ---
SOAP Progress Note Assessment/Plan: Assessment: 1.Chronic respiratory failure 2. Pulmonary hypertension He is going to be seen by the Pulmonary service. His breathing is not bothering him too much right now. 3 Pulmonary embolic disease He has a history of pulmonary embolism back in 2010 approximately or was early 2011 and he stayed on Coumadin therapy ever since that time. His Coumadin is being adjusted in the hospital. 4. Obesity 5. Hypertension 6. Diabetes mellitus 7. Family history of premature coronary disease. 8. Dyslipidemia He is not having chest pain but he has been feeling very exhausted and tired. he is not doing well He does not come to the hospital very often in each sees doctors LEs. He certainly has major risk factors for coronary artery disease and we are doing a pharmacologic stress test today. He is on his atorvastatin and tolerating that well. His obesity is beyond the pale and he clearly would benefit from a surgical approach to obesity but he is not interested in changing anything right now. We have discussed this weight loss and other issues carefully. 9. Tobacco abuse He is on his nicotine patch and he is hoping to do well with not using tobacco. Plan: 02/17/18 1 Subjective: His back is very painful today this is a He had a nuclear stress test and was very difficult for him. We actually gave him 2 mg of IV morphine while he was on the table. He has no chest pain jaw pt pain No pleuritic chest pain No fever chills or cough His back is very painful His groin area very as raw skin is very painful. He has no nausea or vomiting. Objective: Vital Signs Temp Pulse Resp BP Pulse Ox 36.4 C 72 16 114/64 92 02/17/18 07:29 02/17/18 09:25 02/17/18 07:29 02/17/18 09:25 02/17/18 07:29 Laboratory Results 02/17/18 09:16 02/17/18 09:16 02/16/18 02/17/18 02/18/18 05:59 05:59 05:59 Intake Total 2404 1330 Output Total 1100 451 250 Balance 1304 879 -250 PT 30.5 SEC (12.0-15.0) H 02/17/18 09:16 INR 2.94 (0.83-1.16) H 02/17/18 09:16 Selected Entries 0502/17/18 02/17/18 07:29 08:00 09:25 Heart Rate 74 72 Blood Pressure 89/40 L 114/64 Cardiac Rhythm Normal Sinus Rhythm Laboratory Tests 02/15/18 02/15/18 02/16/18 13:00 17:55 03:35 BUN 72 H Creatinine 4.3 H Glucose 121 H 122 H 83 Iron TIBC Iron Saturation Ferritin TSH 2.450 02/17/18 02/17/18 03:42 09:16 BUN 46 H Creatinine 2.1 H Glucose 88 Iron 41.0 L TIBC 211 L Iron Saturation 19 L Ferritin 400.0 TSH Physical Exam - Physical Exam General Appearance: alert, moderate distress Respiratory: rhonchi Cardiac/Chest: regular rate, rhythm, edema, systolic murmur, extra beats, No JVD Abdomen: non-tender, soft Skin: warm/dry, No cyanosis Neuro/Psych: alert, normal mood/affect (Our) ICD10 Worksheet Patient Problems: Problems Problem Status Onset Cellulitis, gluteal Acute Pre-syncope Acute Renal failure, acute Acute
--- NOTE | 2018-02-17 13:06 | CPIP ---
[f rep st] INVASIVE CARDIAC PROCEDURE PHARMACOLOGIC NUCLEAR STRESS TEST The patient gave informed consent for pharmacologic nuclear stress test which was done today. He und erstood the options and wanted to proceed. He was having very severe back pain, so the test was caterina yed with the injection of the pharmacologic agent while we waited to get nursing staff to bring down IV morphine that we could give him because he was suffering from severe back pain. The morphine did come down and I was present in the room while we were waiting for the morphine and t hen the morphine came and we gave him 2 mg of IV morphine. The Lexiscan had been begun and he tolera ana maria the pharmacologic agent well. He had no acute EKG changes. He had PVCs before and after exercis e. The hemodynamics are attached. He had no chest pain, jaw pain, or arm pain. CONCLUSIONS: 1. Pharmacologic nuclear stress test with 2 mg of IV morphine given because of severe back pain. 2. No diagnostic EKG changes. 3. No significant chest discomfort or shortness of breath with the administration of the medication. 4. Nuclear images pending. /[id number]/MODL
--- NOTE | 2018-02-17 15:13 | ASMTCMCOM ---
CM Note CM Note Notes: Pts case discussed in tx rounds. CM met w/ pt, daughter, and daughters fiance for dispo planning. Pt is agreeable to going to [facility] and only [facility]. Pt reports that he had a bad experience at a SNF in the past. Referral sent to [facility]. CM to follow. Plan: TBD Date Signed: 02/17/2018 03:13 PM Electronically Signed By:PAYAL Martell
[2018-02-17] MEDS: oxyCODONE IR 5 MG TAB PO PRN ×2 (15:57→21:21)
[2018-02-17] MEDS ORDERED: WARFARIN SODIUM 2.5 MG TAB PO SCH (16:00)
--- NOTE | 2018-02-17 17:01 | SOAPPROG ---
SOAP Progress Note Assessment/Plan: Assessment: 1. arf: hemodynamic from acei/nsaids/diuretics. Resolving rapidly, would leave off acei permanently in light of severe pulm htn. Expect ongoing resolution from this point. 2. chf: Does not appear particularly edematous but suspect is somewhat volume up. Would optimize vol status prior to adding bp meds. Would avoid acei/arb permanently if possible and should never be either in combination with spironolactone. 3. HyperK: due to arf + meds, rapidly resolved. Avoid acei/sarah combo in future as above. Will sign off, please call with questions. Plan: 02/17/18 16:58 Subjective: No particular c/o aside from some urologic questions relating to previous procedures. Objective: Vital Signs Temp Pulse Resp BP Pulse Ox 36.5 C 73 19 94/79 L 90 L 02/17/18 15:53 02/17/18 15:53 02/17/18 15:53 02/17/18 15:53 02/17/18 15:53 Laboratory Results 02/17/18 09:16 02/17/18 09:16 02/16/18 02/17/18 02/18/18 05:59 05:59 05:59 Intake Total 2404 1330 Output Total 1100 451 250 Balance 1304 879 -250 PT 30.5 SEC (12.0-15.0) H 02/17/18 09:16 INR 2.94 (0.83-1.16) H 02/17/18 09:16 Physical Exam - Physical Exam General Appearance: no apparent distress Respiratory: lungs clear Cardiac/Chest: regular rate, rhythm, other (distant heart sounds) Abdomen: other (very obese) Extremities: pedal edema (none) ICD10 Worksheet Patient Problems: Problems Problem Status Onset Cellulitis, gluteal Acute Pre-syncope Acute Renal failure, acute Acute
[2018-02-17] MEDS: LIDOCAINE 4%/MENTHOL 1% PATCH TD SCH (17:26)
--- NOTE | 2018-02-17 17:33 | GCON ---
[f rep st] CONSULTATION PULMONARY/CRITICAL CARE CONSULTATION DATE OF CONSULTATION: 02/17/2018 REQUESTING PROVIDER: Robb Nelson MD, and Lluvia Palomino MD. REASON FOR REFERRAL: Evaluation and management of pulmonary hypertension and dyspnea. HISTORY: The patient is a 47-year-old male with history of morbid obesity and pulmonary emboli, who was admitted 2 days ago with generalized weakness, nausea, and unsteady gait. He was found to have a cute kidney injury with metabolic acidosis, as well as exacerbation of congestive heart failure. He has been diuresed and nephrotoxic drugs have been held, and he is feeling somewhat better. He report s a long-standing history of dyspnea. His mobility is somewhat limited by orthopedic problems with h is legs, but he does state that if he tries to do much more than just walk around the house, he will developed dyspnea. He checks oxygen saturations and they are in the 90s. He is not on oxygen. He d enies any chest pains. His family reports that he snores at night, but there are no witnessed apneas . He feels refreshed by his sleep in the morning. PAST MEDICAL HISTORY: 1. Congestive heart failure, type unknown. 2. Pulmonary embolism. This was in 2001. It occurred at a time when he was critically ill with inf ection. 3. 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 4. Hypertension. 5. Peripheral neuropathy. ADMISSION MEDICATIONS: Include atorvastatin, carvedilol, famotidine, lisinopril, spironolactone, and warfarin. ALLERGIES: None. SOCIAL HISTORY: The patient used to work at [employer]. He has never smoked but mccrary s chew tobacco. He denies alcohol use. He lives with his mother. FAMILY HISTORY: Unremarkable. REVIEW OF SYSTEMS: A 10-point review of systems is remarkable only for the presence of some mild alysia ma which has not worsened recently. PHYSICAL EXAMINATION: GENERAL: The patient is awake, alert, in no acute distress. VITAL SIGNS: Bl ood pressure is 113/59 with a heart rate of 76. He is afebrile. Oxygen saturations are 94% on room air. HEENT: Normocephalic and atraumatic. No icterus. NECK: No JVD. Trachea is midline. CHEST: Clear to auscultation. CARDIAC: Regular rate and rhythm without murmur. ABDOMEN: Soft, nontende r. Bowel sounds are present. EXTREMITIES: No clubbing or cyanosis. He has chronic stasis changes with 1+ lower extremity edema. He also has a buttock wound which is dressed. NEUROLOGIC: The patie nt is awake and alert. He has no gross motor or sensory deficits. LABORATORY: A hemoglobin is 7.7, down from 9.9 at admission. His MCV is 94.6, platelet count is 93 down from 152, white blood count is 5.1, an absolute reticulocyte count is elevated at 0.16. A demario tin is normal at 400, but iron saturation is low at 19, and iron level is low at 41. Creatinine is 2 .1, down from 4.3 at admission. The anion gap is 13, down from 18. A carbon dioxide level is 19, up from 11. Lactate level is 0.6. An venous blood gas yesterday showed a pH of 7.28 with a pO2 of 152 , a CO2 of 33, and a bicarbonate of 15. An INR is 2.9. A chest x-ray shows poor inspiration. An echocardiogram shows normal LV systolic and diastolic function with no regional wall motion abnorm alities or hypertrophy. There is no valvular disease. The intraventricular septum is flattened, con sistent with right ventricular pressure overload. His right ventricular systolic pressure is estimat ed at 94 mmHg. ASSESSMENT: 1. Severe pulmonary hypertension. This is based on the echocardiographic estimate. I do not have a ny prior measurements available, although notes from 2012 stated that he had pulmonary hypertension o r was being evaluated for it. He is markedly symptomatic with dyspnea with trying to walk with any s ignificant distance. He also has some chronic edema. Possible causes for this could be chronic thro mboembolic pulmonary hypertension, hypoxemia related to obesity and/or sleep apnea, and primary pulmo nary hypertension. 2. Possible obstructive sleep apnea. The patient has obesity, hypertension, snoring, and pulmonary hypertension which together give a fairly high risk for sleep apnea. Sleep apnea has been mentioned to him before, but he has apparently never had an evaluation. 3. Acute kidney injury. This is improved since admission. It may be related to medications includi ng lisinopril, as well as prerenal status with poor p.o. intake and possible pulmonary hypertension. 4. Hyperkalemia. This has improved with treatment. 5. Morbid obesity. 6. Buttocks skin breakdown. RECOMMENDATIONS: 1. V/Q scan which is more sensitive for chronic thromboembolic pulmonary hypertension than CT scan, and CT scan is currently contraindicated, given his acute kidney injury. 2. Check overnight oximetry here in the hospital. I expect this will be abnormal and will need to b e followed by a formal sleep study in order to diagnose the patient's suspected sleep apnea. 3. Given the patient's severe pulmonary hypertension on echocardiogram, a right heart catheterizatio n is indicated, even though his echocardiogram suggests no significant left heart dysfunction. I kyle l discuss this with Dr. Nelson to help decide whether or not this should be pursued during this hospi talization. 4. Will do bedside spirometry to assess pulmonary function, but this may need to be followed by a [facility] pulmonary function test. /[id number]/MODL
--- NOTE | 2018-02-17 18:02 | HOSPPROG ---
Hospitalist Progress Note Assessment/Plan: Assessment: 47-year-old male presenting with acute kidney injury on CKD, acute metabolic acidosis, hyperkalemia Plan: 1. Acute kidney injury on CKD stage III. Likely 2/2 hypoperfusion from hypovolemia, but there is also concern for ATN and AIN from NSAIDs -appreciate renal consultation -cont NS, encourage PO, renal diet -avoid NSAIDs, ACEi, aldactone, diuretic -monitor I/O, weights, Cr -cont NaBicarb tabs -d/w Dr. Alfaro, he reports last known Cr in clinic is 1.4 2. Hyperkalemia. Acute, 2/2 renal failure, stabilized 3. Metabolic acidosis. Acute, secondary to acute kidney injury, given fluids, resolving 4. Chronic diastolic right-sided congestive heart failure 2/2 severe pulmonary hypertension. Echo w/ severely elevated RVSP (94) and RV overload -once Cr stabilized, will plan to reinitiate diuretics to avoid worsening R side failure -will get pulm consult in AM to consider Rx 5. Pressure injury. Present on admission, right buttock, a surrounding erythema potentially cellulitic, but normal white blood cell count -appreciate wound care consultation 6. Morbid obesity. Increase patient's risk of worsening morbidity and/or mortality, dietary consult for renal diet as well as dietary coaching, BMI 46 7. Hypertension. Chronic, hold patient's KAY inhibitor, spironolactone, hold coreg 8. Chronic neuropathy. D/w patient, initiate low dose gabapentin 9. History of pulmonary embolism. Chronically systemically anticoagulated, continue Coumadin and INR monitoring,at lower dosage today 10. Foot pain. Acute, new problem, further w/u indicated. R medial metatarsal 1st digit, tender, reduced ROM -check x-ray foot/ankle -prn pain Rx 11. Acute demand ischemia. 2/2 acidosis, getting nuc stress today 12. Anemia. Likely 2/2 CKD, has iron-deficient component, Hgb stable at 7.7 and retic appropriately elevated -IV iron Diet. Renal Prophylaxis. High risk patient, currently on Coumadin Code. Full per patient, mother is MD FOSTER Disposition. ADD uncertain, patient amenable to [facility] Subjective: reports ongoin R medial foot pain Objective: Vital Signs Temp Pulse Resp BP Pulse Ox 36.5 C 79 19 112/71 90 L 02/17/18 15:53 02/17/18 17:24 02/17/18 15:53 02/17/18 17:24 02/17/18 15:53 Laboratory Results 02/17/18 09:16 02/17/18 09:16 02/16/18 02/17/18 02/18/18 05:59 05:59 05:59 Intake Total 2404 1330 Output Total 1100 451 250 Balance 1304 879 -250 PT 30.5 SEC (12.0-15.0) H 02/17/18 09:16 INR 2.94 (0.83-1.16) H 02/17/18 09:16 - Pending Discharge Pending Discharge Within 48 Hours: Yes Pending Discharge Date: 02/19/18 Pending Discharge Time: 11:00 - Physical Exam Constitutional: no apparent distress, chronically ill appearing, obese, uncomfortable Cardiovascular: systolic murmur (II/ at apex), edema (1+ bilat LE), No irregularly irregular, No tachycardia Respiratory: no respiratory distress, no rales or rhonchi, clear to auscultation Gastrointestinal: normoactive bowel sounds, soft, non-tender abdomen, no palpable masses, distension Skin: other (ecchymoses L medial malleoli, scattered scabbing over bilat calves , woody, non-tender legs) Neurologic: AAOx3, No sensation intact bilaterally (bilat calf paresthesias), No weakness Psychiatric: interacting appropriately, not anxious, not encephalopathic, thought process linear ICD10 Worksheet Patient Problems: Problems Problem Status Onset Cellulitis, gluteal Acute Pre-syncope Acute Renal failure, acute Acute
[2018-02-17] MEDS: GABAPENTIN 300 MG CAP PO SCH (21:22)
[2018-02-17] MEDS: ATORVASTATIN CALCIUM 10 MG TAB PO SCH (21:22)
[2018-02-17] MEDS: PATCH REMOVAL 1 EA PATCH TD SCH (22:20)
[2018-02-18 05:04] LABS: INR 2.06 (0.83-1.16); PROTIME(PATIENT) 23.3 SEC (12.0-15.0)
[2018-02-18] MEDS: oxyCODONE IR 5 MG TAB PO PRN ×3 (06:12→22:07)
[2018-02-18] MEDS: SODIUM BICARBONATE 650 MG TAB PO SCH ×2 (08:52→22:07)
[2018-02-18] MEDS: NICOTINE 21 MG/24 HR PATCH TD SCH (08:57)
[2018-02-18] MEDS: LIDOCAINE 4%/MENTHOL 1% PATCH TD SCH (08:57)
[2018-02-18] MEDS: SODIUM FERRIC GLUCONAT/SUCROSE 125 MG in NS 100 ML IV SCH (08:58)
[2018-02-18] MEDS ORDERED: WARFARIN SODIUM 2.5 MG TAB PO SCH (09:08)
[2018-02-18] MEDS ORDERED: ALPRAZolam 1 MG TAB PO ONE (11:31)
--- NOTE | 2018-02-18 13:02 | WOCRNPDOC ---
CORIN Advanced Assessment Note - Skin Integrity Problem, Advanced Assess Left Lower Sacrum Pressure Injury Dressing Type: Mepilex Border Exudate Amount: Scant Exudate Color: Reddish/Yellow Exudate Characteristic(s): Serosanguinous Integumentary Issue Intervention: Dressing Changed, Dressing Removed, Mechanical Debridement (removed loose eschar w/ scissors and forceps) Sabina Wound Tissue: Blanching, Erythema, Raw Wound Bed Color: Black, Red, Yellow Wound Bed Constitution: Red/Mcbaine - Non Granular Tissue (30%), Mixed Loose & Adhered Slough/Eschar (70%) Site Measurement - Head-to-Toe Length X Width X Depth (cm): 6.2cmx3.9cmx eschar/ slough Pressure Injury Stage: Unstageable Pressure Injury Present on Admit: Yes (hospitalist notifed) Skin Integrity Problem Comment: Fill-thickness wound on L lower sacrum, appearance consistent w/ unstageable pressure injury. Eschar medially beginning to loosen; this author was able to cut away a loose flap using scissors and forceps. Adhered slough scattered throughout the wound bed, some non- granulating smooth tissue evident along margins. Will continue to use Plurogel to soften the eschar/slough. Patient remains on a pressure relieving surface, though coal washer tender Mo reports he does not off-load due to c/o pain about his back. Reiterated to patient the importance of staying off his bottom as much as possible. New dressing placed. Wound RN will round again on Thursday 02/22. Right Sacrum Pressure Injury Dressing Type: Mepilex Border Dressing Description: Intact Exudate Amount: Scant Exudate Characteristic(s): Serosanguinous Integumentary Issue Intervention: Dressing Changed Sabina Wound Tissue: Blanching, Raw Sabina Wound Swelling: Mild Wound Bed Color: Red, Yellow Wound Bed Constitution: Red/Mcbaine - Non Granular Tissue, Adhered Slough Site Measurement - Head-to-Toe Length X Width X Depth (cm): R lateral sacral: 7.6cmx2.2cmx0.1cm. R medial sacral: 2.2cmx0.4cmx 0 cm (slough) Pressure Injury Stage: Unstageable Pressure Injury Present on Admit: Yes (hospitalist notified) Skin Integrity Problem Comment: This wound was previously documented as two, discrete wounds on R proximal and distal sacrum. Presently, the wound has evolved into one, continuous wound on patient's R sacrum. There remains a discrete, separate wound medially, also unstageable. Slough is beginning to soften throughout, though still too well-adhered to remove w/ gauze. Will continue with plan of care, including pressure-relieving interventions. Bilateral Pannus Dressing Type: Interdry Exudate Amount: Scant Exudate Color: Reddish/Yellow Exudate Characteristic(s): Serosanguinous Integumentary Issue Intervention: Visualized Under Dressing Sabina Wound Tissue: Erythema, Raw Sabina Wound Swelling: Mild Wound Bed Color: Red Wound Bed Constitution: Red/Mcbaine - Non Granular Tissue Skin Integrity Problem Comment: Linear, partial-thickness openings along the crease of patient's bilateral pannus, consistent in appearance w/ intertriginous , moisture-associated dermatitis. Nursing has placed Interdry sheets, and this is appropriate to continue. Wound care does not need to follow these wounds ongoing. Left Proximal Sacrum Pressure Injury Dressing Description: Intact Exudate Amount: None Integumentary Issue Intervention: Dressing Changed Sabina Wound Tissue: Erythema, Non-blanching (adjacent, full-thickness pressure injury), Raw Sabina Wound Swelling: Mild Wound Bed Color: Purple Site Measurement - Head-to-Toe Length X Width X Depth (cm): 1.8cmx1.9xpm2um Pressure Injury Stage: Deep Tissue Injury (DTI) Pressure Injury Present on Admit: Yes Skin Integrity Problem Comment: There is a patch of dark purple tissue on patient's L proximal sacrum, w/ some underlying softness when palpated, appearance consistent w/ deep tissue injury. Likely that this injury is related to the other unstageable pressure injury distal to this, and is now declaring itself. Overlying skin currently intact, but bogginess of tissue indicates it will likely open to reveal a full-thickess injury. This wound is covered by the currently ordered dressing, and should also be off-loaded aggressively per order. coal washer tender Mo present to visualize.
--- NOTE | 2018-02-18 15:09 | SOAPPROG ---
HERNANDEZ Progress Note Assessment/Plan: Assessment: . Plan: 02/17/18 1 02/18/18 15:12 1. Chronic respiratory failure 2. Pulmonary hypertension 3. Chronic dyspnea 4. Pulmonary embolic disease He is on full anticoagulation he is getting a V/Q scan. I have discussed this case with the Pulmonary service. We need to consider right heart catheterization which we could do in this admission or we can do later when our new pulmonary hypertension expert comes to [facility]. We will put his name on list for a new physician to see. These are chronic problems for him. We need to evaluate but we could do anything to help him regarding sleep issues. 4. Obesity 5. Hypertension 6. Diabetes mellitus 7. Family history of premature coronary disease 8 dyslipidemia His nuclear stress test is negative for ischemia. All his questions have been answered. He is going to need very aggressive physical therapy Subjective: He feels well today He does not have chest pain He has no shortness of breath He does have fatigue He has no nausea he has no vomiting He has no constipation. He is taking his medications Objective: Vital Signs Temp Pulse Resp BP Pulse Ox 36.9 C 87 18 123/70 H 90 L 02/18/18 12:00 02/18/18 12:00 02/18/18 12:00 02/18/18 12:00 02/18/18 12:00 Microbiology 02/16/18 20:00 Urine Culture - Final Urine,Clean Catch Escherichia Coli Laboratory Results 02/18/18 03:44 02/18/18 03:44 02/17/18 02/18/18 02/19/18 05:59 05:59 05:59 Intake Total 1330 980 Output Total 451 600 Balance 879 380 PT 23.3 SEC (12.0-15.0) H 02/18/18 03:44 INR 2.06 (0.83-1.16) H 02/18/18 03:44 Selected Entries 02/18/18 02/18/18 07:25 12:00 Heart Rate 77 87 Temperature (C) 36.9 C Blood Pressure 100/74 123/70 H Mean Arterial 87 Pressure (MAP) Run a or ICD10 Worksheet Patient Problems: Problems Problem Status Onset Cellulitis, gluteal Acute Pre-syncope Acute Renal failure, acute Acute
--- NOTE | 2018-02-18 15:44 | PDINTPN ---
Invasive Cardiovascular Technologist Progress Note Assessment/Plan: Assessment: Pulmonary HTN: Severe based on ECHO 02/16/18, with RVSP 94 mmHg and septal flattening. VQ negative for CTEPH. Noc Ox shows only mild hypoxemia, although he does have a few minutes of severe desaturations and likely has KENNEDI given the results of oximetry, snoring, and pulmonary HTN. Unable to do spirometry due to concern for gagging. The severely elevated RVSP on ECHO seems out of proportion to his symptoms, it may be that there is a component of acute elevation related to SHAWNEE and fluid retention. SHAWNEE: Improved Plan: He'll need an outpatient sleep study to evaluate for KENNEDI, I can arrange after discharge. Could repeat ECHO after he's returned to baseline medically and any KENNEDI has been addressed. If still elevated (as I suspect it will be), would proceed with RHC at that point to assess severity and exclude elevated left filling pressures as a contributor. 02/18/18 15:46 Subjective: Feels better, more strength/energy. Denies dyspnea, but hasn't been very active. Objective: Vital Signs Temp Pulse Resp BP Pulse Ox 36.9 C 87 18 123/70 H 90 L 02/18/18 12:00 02/18/18 12:00 02/18/18 12:00 02/18/18 12:00 02/18/18 12:00 Microbiology 02/16/18 20:00 Urine Culture - Final Urine,Clean Catch Escherichia Coli Laboratory Results 02/18/18 03:44 02/18/18 03:44 02/17/18 02/18/18 02/19/18 05:59 05:59 05:59 Intake Total 1330 980 Output Total 451 600 Balance 879 380 PT 23.3 SEC (12.0-15.0) H 02/18/18 03:44 INR 2.06 (0.83-1.16) H 02/18/18 03:44 VQ scan: Normal. Images reviewed by me. Noc Ox on RA: Mean 88%, some periods of desats to 50s-70s. Physical Exam - Physical Exam General Appearance: alert, no apparent distress EENT: normal ENT inspection Neck: normal inspection Respiratory: lungs clear, normal breath sounds Cardiac/Chest: regular rate, rhythm, edema (1+) Abdomen: normal bowel sounds, non-tender Skin: normal color, warm/dry Extremities: normal inspection Neuro/Psych: alert, normal mood/affect, oriented x 3 ICD10 Worksheet Patient Problems: Problems Problem Status Onset Cellulitis, gluteal Acute Pre-syncope Acute Renal failure, acute Acute
[2018-02-18] MEDS: predniSONE 20 MG TAB PO SCH (15:58)
[2018-02-18] MEDS: WARFARIN SODIUM 5 MG TAB PO SCH (15:58)
--- NOTE | 2018-02-18 17:22 | HOSPPROG ---
Hospitalist Progress Note Assessment/Plan: Assessment: 47-year-old male presenting with acute kidney injury on CKD, acute metabolic acidosis, hyperkalemia Plan: 1. Acute kidney injury on CKD stage III. Likely 2/2 hypoperfusion from hypovolemia, but there is also concern for ATN and AIN from NSAIDs -appreciate renal consultation -off IVF -avoid NSAIDs, ACEi, aldactone, diuretic -monitor I/O, weights, Cr -cont NaBicarb tabs -last known Cr in clinic is 1.4, currently 1.7 2. Hyperkalemia. Acute, 2/2 renal failure, stabilized 3. Metabolic acidosis. Acute, secondary to acute kidney injury, given fluids, resolving 4. Chronic diastolic right-sided congestive heart failure 2/2 severe pulmonary hypertension. Echo w/ severely elevated RVSP (94) and RV overload -once Cr stabilized, will plan to reinitiate diuretics to avoid worsening R side failure -VQ normal -appreciate pulm and cards consultations, given that Cr remains elevated above baseline, would recommend allowing the current situation to stabilize prior to performing RHC w/ contrast load, particularly since there may be an element of SHAWNEE-induced fluid retention that prompted his pulm pressures to be deceptively elevated, and this possibility can be evaluated w/ a repeat outpt Echo prior to scheduling RHC 5. Pressure injury. Present on admission, right buttock, a surrounding erythema potentially cellulitic, but normal white blood cell count -appreciate wound care consultation 6. Morbid obesity. Increase patient's risk of worsening morbidity and/or mortality, dietary consult for renal diet as well as dietary coaching, BMI 46 7. Hypertension. Chronic, hold patient's KYA inhibitor, spironolactone, hold coreg 8. Chronic neuropathy. D/w patient, initiate low dose gabapentin 9. History of pulmonary embolism. Chronically systemically anticoagulated, continue Coumadin and INR monitoring, 5mg daily 10. Foot pain. X-ray w/ arch collapse and external rotation, likely exacerbated by his habitus -d/w Dr. Alfaro, he reports he will get MRI as outpatient, as well as eval lower back pain w/ MRI and refer to Dr. Parker depending on results -there may be an element of acute gout flare in the setting of acute illness, w / bilat tender medial malleoli effusions (L>R) and gout erosions on x-ray -d/w patient, will trial pred 20mg and gauge effect 11. Acute demand ischemia. 2/2 acidosis, nuc stress w/o ischemia 12. Anemia. Likely 2/2 CKD, has iron-deficient component, Hgb stable at 7.7, retic is unusually elevated for anemia of CKD/chronic inflam disease -IV iron x 2 days -d/w patient, he will likely require outpt EGD/Colon for further eval 13. Asymptomatic bacteriuria. 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 Cardiac Prophylaxis. High risk patient, currently on Coumadin Code. Full per patient, mother is POJeanie Disposition. ADD uncertain, patient amenable to [facility] Subjective: Patient reports ongoing ankle pain, left greater than right Objective: Vital Signs Temp Pulse Resp BP Pulse Ox 36.4 C 87 16 122/70 H 90 L 02/18/18 16:00 02/18/18 16:00 02/18/18 16:00 02/18/18 16:00 02/18/18 16:00 Microbiology 02/16/18 20:00 Urine Culture - Final Urine,Clean Catch Escherichia Coli Laboratory Results 02/18/18 03:44 02/18/18 03:44 02/17/18 02/18/18 02/19/18 05:59 05:59 05:59 Intake Total 1330 980 Output Total 451 600 Balance 879 380 PT 23.3 SEC (12.0-15.0) H 02/18/18 03:44 INR 2.06 (0.83-1.16) H 02/18/18 03:44 - Time Spent With Patient Time Spent with Patient: greater than 35 minutes Time Spent with Patient: Greater than 35 minutes spent on this patients care, greater than 50% of time spent counseling, educating, and coordinating care regarding the above mentioned plan. - Physical Exam Constitutional: chronically ill appearing, obese, uncomfortable Cardiovascular: systolic murmur (distant heart sounds, I/ at apex and sternum) , edema (1+ bilat LE), No irregularly irregular, No tachycardia Respiratory: no respiratory distress, no rales or rhonchi, clear to auscultation Gastrointestinal: normoactive bowel sounds, soft, non-tender abdomen, no palpable masses, No distension Genitourinary: other (internalized urethra, no visible penis) Skin: other (no erythema at urethral opening) Neurologic: AAOx3 Psychiatric: interacting appropriately, not anxious, not encephalopathic, thought process linear ICD10 Worksheet Patient Problems: Problems Problem Status Onset Cellulitis, gluteal Acute Renal failure, acute Acute Pre-syncope Acute
[2018-02-18] MEDS: PATCH REMOVAL 1 EA PATCH TD SCH (21:00)
[2018-02-18] MEDS: GABAPENTIN 300 MG CAP PO SCH (22:07)
[2018-02-18] MEDS: ATORVASTATIN CALCIUM 10 MG TAB PO SCH (22:09)
[2018-02-18] MEDS: ACETAMINOPHEN 325 MG TAB PO PRN (22:09)
[2018-02-19 04:21] LABS: INR 1.63 (0.83-1.16); PROTIME(PATIENT) 19.5 SEC (12.0-15.0)
[2018-02-19] MEDS: ACETAMINOPHEN 325 MG TAB PO PRN ×3 (04:53→20:23)
[2018-02-19] MEDS: oxyCODONE IR 5 MG TAB PO PRN ×3 (04:53→20:22)
[2018-02-19] MEDS: SODIUM FERRIC GLUCONAT/SUCROSE 125 MG in NS 100 ML IV SCH (10:02)
[2018-02-19] MEDS: NICOTINE 21 MG/24 HR PATCH TD SCH (10:07)
[2018-02-19] MEDS: LIDOCAINE 4%/MENTHOL 1% PATCH TD SCH (10:09)
[2018-02-19] MEDS: SODIUM BICARBONATE 650 MG TAB PO SCH (10:09)
[2018-02-19] MEDS: predniSONE 20 MG TAB PO SCH (10:09)
[2018-02-19] MEDS ORDERED: ASPIRIN EC 325 MG TAB PO ONE ×3 (12:01→14:08)
[2018-02-19] MEDS ORDERED: FAMOTIDINE 20 MG TAB PO ONE ×2 (12:01→13:34)
[2018-02-19] MEDS ORDERED: NS 1,000 ML IV ONE (12:01)
[2018-02-19] MEDS ORDERED: diphenhydrAMINE 25 MG CAP PO ONE ×2 (12:01→14:08)
[2018-02-19] MEDS ORDERED: DIAZEPAM 5 MG TAB PO ONE ×2 (12:01→13:34)
--- NOTE | 2018-02-19 13:10 | SOAPPROG ---
HERNANDEZ Progress Note Assessment/Plan: Assessment: . Plan: y 02/19/18 13:08 1. Chronic respiratory failure 2. Pulmonary hypertension 3. Chronic dyspnea Problem 4. Pulmonary embolic disease He has had his V/Q scan our going to do a right heart catheterization to see if he may have reactive pulmonary hypertension and helped get enough information to get him on good treatment for pulmonary hypertension. He is improved since he has been in the hospital his renal function is back to being quite excellent for him and he is stable. The plan will be long-term we will follow with him carefully. I will see him within 1 week of discharge when he is discharged. Number 5 obesity 6. Hypertension 7. Dyslipidemia 8. Acute renal insufficiency. We have reviewed prevention and discussed plans for him to try to lose weight and exercise. All his questions have been answered. His renal function is much improved. He is being followed by his primary care doctor as well and has a close relationship with him. All his questions are answered. Subjective: He feels well today. He is having no chest pain He is short of breath His back is very painful. He has no fever chills He is having no new neurologic complaints She is not having no headache or stiff some neck or sore throat. Objective: Vital Signs Temp Pulse Resp BP Pulse Ox 36.8 C 75 14 134/64 H 94 02/19/18 13:00 02/19/18 13:00 02/19/18 13:00 02/19/18 13:00 02/19/18 13:00 Microbiology 02/16/18 20:00 Urine Culture - Final Urine,Clean Catch Escherichia Coli Laboratory Results 02/19/18 03:34 02/19/18 03:34 02/18/18 02/19/18 02/20/18 05:59 05:59 05:59 Intake Total 980 150 480 Output Total 600 Balance 380 150 480 PT 19.5 SEC (12.0-15.0) H 02/19/18 03:34 INR 1.63 (0.83-1.16) H 02/19/18 03:34 Selected Entries 02/19/18 02/19/18 04:00 07:26 Blood Pressure 129/78 H 138/78 H Physical Exam - Physical Exam General Appearance: moderate distress Respiratory: rhonchi Cardiac/Chest: regular rate, rhythm, systolic murmur Abdomen: non-tender Skin: pallor Extremities: pedal edema Neuro/Psych: normal mood/affect ICD10 Worksheet Patient Problems: Problems Problem Status Onset Cellulitis, gluteal Acute Pre-syncope Acute Renal failure, acute Acute
[2018-02-19] MEDS ORDERED: NITROGLYCERIN 0.4 MG BTL SL PRN (13:34)
[2018-02-19] MEDS ORDERED: TEMAZEPAM 15 MG CAP PO PRN (13:34)
--- NOTE | 2018-02-19 13:38 | ASMTCMCOM ---
CM Note CM Note Notes: Pts case discussed in morning rounds. Pt has been accepted to [facility]. CM met w/ pt and informed him of this. Pt reports that he will have family tour the facility. Pt is having a right heart CATH today at 2PM. CM updated Sarai at [facility] that he will be able to d/c on Thursday at the earliest. CM to follow. Plan: [facility] Date Signed: 02/19/2018 01:38 PM Electronically Signed By:PAYAL Martell
[2018-02-19] MEDS ORDERED: NS 1,000 ML IV SCH (13:45)
--- NOTE | 2018-02-19 13:48 | PDPROPOC ---
Sedation Plan of Care Sedation Plan of Care: vital signs stable, mental status noted, patient educated of risks, benefits, alternatives, patient can tolerate sedation ASA Classification: ASA 3 Planned drugs: fentanyl, midazolam Mallampati Score: Class 4 Mallampati Reference Image: Patient passed 3-3-2 rule?: No (High risk airway.)
--- NOTE | 2018-02-19 13:49 | PDHPUP ---
History & Physical Update H&P update statement: This history and physical update is based on an assessment of the patient which was completed after admission or registration (within 24 hours), but prior to the surgery/procedure. H&P update: H&P reviewed & patient examined, no change in patient's condition since H&P completed
[2018-02-19] MEDS ORDERED: FAMOTIDINE 20 MG TAB ONE (14:08)
[2018-02-19] MEDS ORDERED: DIAZEPAM 5 MG TAB ONE (14:08)
[2018-02-19] MEDS ORDERED: fentaNYL 100 MCG/2 ML INJ ONE (14:14)
[2018-02-19] MEDS ORDERED: LIDOCAINE 1% 300 MG/30 ML SDV ONE (14:14)
[2018-02-19] MEDS ORDERED: MIDAZOLAM 2 MG/2 ML VIAL ONE ×2 (14:15→14:46)
[2018-02-19] MEDS ORDERED: IOPAMIDOL (ISOVUE-370) 150 ML BTL IV ONE (14:52)
--- NOTE | 2018-02-19 14:56 | PDDXCAT ---
Diagnostic Cath Note - . Date: 02/19/18 Tool Pusher: Justino Indication: other (Pulmonary hypertension) - Procedure Access: left wrist Procedure: right heart catheterization - Materials Left Heart Cath size: 5F - Findings-Right Heart Catheterization RA: After drug therapy: Pressure: 20/19/18 mmHg PA: Before drug therapy: Mean PA pressure was 62 mmHg. Adenosine 100 mcg/kg/min : Mean PA pressure was 55mmHg. At maximal therapy of 250 mcg/kg/min the mean PA pressure was 54 mmHg. PAOP: The mean PAOP was 22 mmHg. AO: Before drug therapy: 85%. After vasodilator therapy: 94% CO: Before vasodilator therapy 5.75 L/min. After vasodilator therapy: 9.82 L/ min. The cardiac output did not go down with vasodilator therapy. We had to give the patient supplemental O2 whick likely changed the oxygen consumption calculations. CI: The CI before vasodilator therapy was 2.26 L/min/m2. The CI after vasodilator therapy was 3.85 L/min/m2 Complications: NONE. Estimated blood loss: <50ml Closure method: TR Band Assessment: The patient has severe pulmonary hypertension and hypoxemia on room air. With vasodilator challenge the mean PA pressure went down by 9mmHg. The mean PA pressure did not drop below 40 mmHg and the cardiac output was measured to go up with concomitant vasodilator and oxygen therapy. As noted, that result may have been spurious secondary to supplemental oxygen. The CO did not go down. The benefit of chronic vasodilator therapy is questionable. Plan: The patient will need to be enrolled in a pulmonary hypertension clinic and followed by a pulmonary hypertension specialist. Intervention: NONE. Patient Problems: Problems Problem Status Onset Cellulitis, gluteal Acute Pre-syncope Acute Renal failure, acute Acute
[2018-02-19] MEDS ORDERED: ADENOSINE 90 MG/30 ML VIAL IV ONE ×2 (14:59→15:00)
[2018-02-19] MEDS ORDERED: ATROPINE SULFATE 1 MG/10 ML SYR IVP PRN (15:36)
--- NOTE | 2018-02-19 16:54 | PDINTPN ---
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 Confirmed with RHC, which also showed elevated PAOP and increased CI , reduced PAP with adenosine. VQ negative for CTEPH. Noc Ox shows only mild hypoxemia, although he does have a few minutes of severe desaturations and likely has KENNEDI given the results of oximetry, snoring, and pulmonary HTN. Unable to do spirometry due to concern for gagging. SHAWNEE: Improved Plan: He'll need an outpatient sleep study to evaluate for KENNEDI, I can arrange after discharge. Diuresis once tolerated from renal standpoint to address elevated PAOP in setting of a normal LV on ECHO but SHAWNEE. I'll arrange follow-up with Dr. Manriquez for pulmonary HTN. 02/19/18 16:59 Subjective: Feels OK, denies dyspnea, CP, cough. Objective: Vital Signs Temp Pulse Resp BP Pulse Ox 36.8 C 75 14 134/64 H 94 02/19/18 13:00 02/19/18 13:00 02/19/18 13:00 02/19/18 13:00 02/19/18 13:00 Laboratory Results 02/19/18 03:34 02/19/18 03:34 02/18/18 02/19/18 02/20/18 05:59 05:59 05:59 Intake Total 980 150 780 Output Total 600 Balance 380 150 780 PT 19.5 SEC (12.0-15.0) H 02/19/18 03:34 INR 1.63 (0.83-1.16) H 02/19/18 03:34 RHC: Mean PAP 62 mmHg, reduced to 54 mmHg with adenosine. PAOP 22 mmHg. CI 2.3-> 3.85 with adenosine. Sat run showed low sats without evidence of shunt. Physical Exam - Physical Exam General Appearance: alert, no apparent distress EENT: normal ENT inspection Neck: normal inspection Respiratory: lungs clear, normal breath sounds Cardiac/Chest: regular rate, rhythm, edema (1+) Abdomen: normal bowel sounds, non-tender, soft Skin: normal color, warm/dry Extremities: normal inspection Neuro/Psych: alert, normal mood/affect, oriented x 3, motor weakness ICD10 Worksheet Patient Problems: Problems Problem Status Onset Cellulitis, gluteal Acute Pre-syncope Acute Renal failure, acute Acute
[2018-02-19] MEDS: WARFARIN SODIUM 5 MG TAB PO SCH (17:12)
--- NOTE | 2018-02-19 17:26 | HOSPPROG ---
Hospitalist Progress Note Assessment/Plan: Assessment: 47-year-old male presenting with acute kidney injury on CKD, acute metabolic acidosis, hyperkalemia, severe pulm HTN Plan: 1. Acute kidney injury on CKD stage III. Likely 2/2 hypoperfusion from hypovolemia, but there is also concern for ATN and AIN from NSAIDs, as well as use of ACEi/aldactone/lasix -appreciate renal consultation -off IVF -avoid NSAIDs, ACEi, aldactone, diuretic -monitor I/O, weights, Cr -last known Cr in clinic is 1.4, returned to baseline today 2. Hyperkalemia. Acute, 2/2 renal failure, stabilized 3. Metabolic acidosis. Acute, secondary to acute kidney injury, given fluids, stop sodium bicarb tabs today 4. Chronic diastolic right-sided congestive heart failure 2/2 severe pulmonary hypertension. Echo w/ severely elevated RVSP (94) and RV overload -VQ normal, RHC today -d/w Dr. Nelson, he reports CCB not recommended -will reinitiate diuresis tomorrow AM and see how he tolerates over subsequent 24hrs prior to discharging to SNF -Dr. Tsai recs outpt f/u Dr. Manriquez, outpt sleep study 5. Pressure injury. Present on admission, right buttock -appreciate wound care consultation, will need ongoing outpt wound care 6. Morbid obesity. Increase patient's risk of worsening morbidity and/or mortality, dietary consult for renal diet as well as dietary coaching, BMI 46 7. Hypertension. Chronic, holding patient's KAY inhibitor, spironolactone, coreg 8. Chronic neuropathy. D/w patient, initiated low dose gabapentin, can uptitrate to 600mg HS 02/20 9. History of pulmonary embolism. Chronically systemically anticoagulated, continue Coumadin and INR monitoring, 5mg daily -if remains subtherapeutic tomorrow, will require bridging therapy w/ heparin 10. Gout. Acute flare, bone erosion on x-ray, likely 2/2 undertreated CKD -effusion/tenderness improved in LLE malleoli today s/p pred 20, D2/5 11. Acute demand ischemia. 2/2 acidosis, nuc stress w/o ischemia 12. Anemia. Likely 2/2 CKD, has iron-deficient component, Hgb stable at 8.4, retic is unusually elevated for anemia of CKD/chronic inflam disease -IV iron x 2 days -d/w patient, he will likely require outpt EGD/Colon for further eval 13. Asymptomatic bacteriuria. Urine culture demonstrating for quinolone and Unasyn resistant E coli, patient without any urinary symptoms 14. Pes planus. Chronic, confirmed on x-ray, pain likely exacerbated by habitus , no acute fxr R foot Diet. Cardiac Prophylaxis. High risk patient, currently on Coumadin Code. Full per patient, mother is MD FOSTER Disposition. ADD uncertain, patient amenable to [facility] High-level medical complexity, high risk patient for worsening morbidity and/or mortality secondary to the issues as outlined above. Subjective: reports improvement in L ankle pain, ongoing R arch pain Objective: Vital Signs Temp Pulse Resp BP Pulse Ox 36.5 C 60 18 138/93 H 90 L 02/19/18 16:45 02/19/18 16:45 02/19/18 16:45 02/19/18 16:45 02/19/18 16:45 Laboratory Results 02/19/18 03:34 02/19/18 03:34 02/18/18 02/19/18 02/20/18 05:59 05:59 05:59 Intake Total 980 150 780 Output Total 600 Balance 380 150 780 PT 19.5 SEC (12.0-15.0) H 02/19/18 03:34 INR 1.63 (0.83-1.16) H 02/19/18 03:34 - Physical Exam Constitutional: no apparent distress, not in pain, chronically ill appearing, obese, uncomfortable Cardiovascular: edema (2+ bilat LE), No systolic murmur, No irregularly irregular, No tachycardia Respiratory: inspiratory crackles (bilat bases), No reduced air movement, No expiratory wheeze, No bronchial breath sounds, No respiratory distress Gastrointestinal: normoactive bowel sounds, soft, non-tender abdomen, no palpable masses, distension (mild) Skin: other (ecchymoses medial L malleoli w/o erythema) Neurologic: AAOx3, No sensation intact bilaterally (subjective paresthesias bilat mid calves), No weakness (motor 5/5 bilat LE) Psychiatric: interacting appropriately, not anxious, not encephalopathic, thought process linear ICD10 Worksheet Patient Problems: Problems Problem Status Onset Cellulitis, gluteal Acute Renal failure, acute Acute Pre-syncope Acute
[2018-02-19] MEDS: GABAPENTIN 300 MG CAP PO SCH (20:22)
[2018-02-19] MEDS: ATORVASTATIN CALCIUM 10 MG TAB PO SCH (20:23)
[2018-02-19] MEDS: PATCH REMOVAL 1 EA PATCH TD SCH (20:28)
[2018-02-20] MEDS: oxyCODONE IR 5 MG TAB PO PRN (04:14)
[2018-02-20] MEDS: ACETAMINOPHEN 325 MG TAB PO PRN (04:14)
[2018-02-20 04:26] LABS: INR 1.55 (0.83-1.16); PROTIME(PATIENT) 18.7 SEC (12.0-15.0)
[2018-02-20] MEDS: predniSONE 20 MG TAB PO SCH (09:28)
[2018-02-20] MEDS: FUROSEMIDE 40 MG TAB PO SCH ×2 (09:28→14:39)
[2018-02-20] MEDS: NICOTINE 21 MG/24 HR PATCH TD SCH (09:28)
[2018-02-20] MEDS: LIDOCAINE 4%/MENTHOL 1% PATCH TD SCH (09:29)
[2018-02-20] MEDS ORDERED: ENOXAPARIN 150 MG/ML SYR SC SCH (11:00)
--- NOTE | 2018-02-20 11:01 | PDIAF ---
- Diagnosis Diagnosis: pulmonary HTN Code Status: Full Code - Medication Management Discharge Medications: Medications to Continue on Transfer Atorvastatin Calcium [Lipitor 10 mg (*)] 10 mg PO HS 02/15/18 [Last Taken 22:00] [place]-3 Fatty Acids [Fish Oil 1000 mg (*)] 1,000 mg PO DAILY 02/15/18 [Last Taken 02/15/18 08:00] Warfarin Sodium [Coumadin 5MG (*)] 5 mg PO DAILY16 02/15/18 [Last Taken 16:00] Acetaminophen [Tylenol 325mg (*)] 650 mg PO Q4HRS PRN tab 02/20/18 [Last Taken Unknown] Enoxaparin [Lovenox 150 MG (*)] 150 mg SC BID syr 02/20/18 [Last Taken Unknown] Furosemide [Lasix 40 MG (*)] 40 mg PO BID@0900,1500 tab 02/20/18 [Last Taken Unknown] Gabapentin [Neurontin 300 MG (*)] 300 mg PO HS cap 02/20/18 [Last Taken Unknown ] Lidocaine 4%/Menthol 1% [Icy Hot Lidocaine/Menthol 4%/1% Patch (*)] 1 patch TD DAILY patch 02/20/18 [Last Taken Unknown] Nicotine Polacrilex [Nicorette gum (*)] 2 mg B PRN PRN gum 02/20/18 [Last Taken Unknown] Nicotine [Nicoderm Cq 21 mg (*)] 21 mg TD DAILY patch 02/20/18 [Last Taken Unknown] oxyCODONE IR [Oxycodone Ir (*)] 2.5 - 5 mg PO Q6 PRN tab 02/20/18 [Last Taken Unknown] predniSONE 20 mg PO DAILY 2 Days tablet 02/20/18 [Last Taken Unknown] Discharge Medications: Refer to the Discharge Home Medication list for PRN reason. - Orders Services needed: Registered Nurse, Physical Therapy, Occupational Therapy Diet Recommendation: cardiac -low fat low salt Diet Texture: Regular Texture Diet Wound Care Instructions: [place] (Pressure injury) care: You have multiple pressure injuries (stage 3 and unstagable) on the very lowest part of your back (the sacrum.) To help heal this wound and avoid further injury please do the followin.Reposition yourself frequently, at least every 15 minutes when sitting. Stand up every hour for at least 5 min. We recommend sitting on an the gina jesus PRT cushion we are sending you home with. Please never use a doughnut. 2.When youre in bed, try to rest on your side as much as possible, and change position every two hours (for example, turn or tilt from your right side toward your left).~ If you sleep on a sleep number or medical bed, keep the head of the bed below 30 degrees and keep all pressure off your low back for at least 5 minutes at least every two hours.~. 3.As needed, you may use Calazime, dimethicone moisture barrier cream, or any zjpk-cxf-ptjduel diaper rash cream to help prevent or treat a moisture-related rash to your bottom area and buttocks. 4.Please contact [facility] outpatient [facility] for an appointment, at [phone], If your wounds re/open or dont improve, or if you have any further questions or concerns. Mindy ARELLANO. Wound Care Orders: Change dressings to both wounds on Right Lower Sacrum daily and prn. 1. Clean with ns and gauze. 2. Skin prep tahira wound. 3. Wound gel to wound bed on both wounds. 4. Cover all wounds with large Mepilex Border Sacrum, which can be placed upside down if necessary. Angy Butt RN Wound Care Team. Left sacral wound orders: change daily and prn. 1. Clean with ns and gauze. 2. apply skin prep tahira wound. 3. Apply a 1/8 of an inch thick layer of PLUROGEL with a tongue depressor to black eschar in wound bed only. (If you cant find plurogel wound care does not have anymore of it please use a large amount of wound gel and cover with a small telfa then go to step 4.). 4. Cover the entire area (this and the other two wounds with large Mepilex Sacral dressing that can be placed upside down if necessary. Angy Butt RN per Wound Care Team Additional Instructions: please get nocturnal sleep study DIEGO for treatment of suspected KENNEDI please follow with Cardiology for ongoing titration of your cardiac regimen Please follow up within 3- 4 weeks of discharge with outpatient Wound Healing Center if you continue to have issues with your wounds: You may reach them at [phone] for an appointment and continued management of your wounds. Please call them [place] to schedule your appointment as they fill up quickly. If before that time you have any issues please follow up with your PCP. Wound care: [place] (Pressure injury) care: You have multiple pressure injuries (stage 3 and unstagable) on the very lowest part of your back (the sacrum.) To help heal this wound and avoid further injury please do the followin. Reposition yourself frequently, at least every 15 minutes when sitting. Stand up every hour for at least 5 min. We recommend sitting on an the gina jesus PRT cushion we are sending you home with. Please never use a doughnut. 2. When youre in bed, try to rest on your side as much as possible, and change position every two hours (for example, turn or tilt from your right side toward your left).~ If you sleep on a sleep number or medical bed, keep the head of the bed below 30 degrees and keep all pressure off your low back for at least 5 minutes at least every two hours.~ 3. As needed, you may use Calazime, dimethicone moisture barrier cream, or any aunh-otb-yhoovmk diaper rash cream to help prevent or treat a moisture- related rash to your bottom area and buttocks. 4. Please contact [facility] outpatient [facility] for an appointment, at [phone], If your wounds re/open or dont improve, or if you have any further questions or concerns. Mindy ARELLANO Wound Care Orders: Change dressings to both wounds on Right Lower Sacrum daily and prn. 1. Clean with ns and gauze 2. Skin prep tahira wound 3. Wound gel to wound bed on both wounds 4. Cover all wounds with large Mepilex Border Sacrum, which can be placed upside down if necessary Angy Butt RN Wound Care Team Left sacral wound orders: change daily and prn 1. Clean with ns and gauze 2. apply skin prep tahira wound 3. Apply a 1/8 of an inch thick layer of PLUROGEL with a tongue depressor to black eschar in wound bed only. (If you cant find plurogel wound care does not have anymore of it please use a large amount of wound gel and cover with a small telfa then go to step 4.) 4. Cover the entire area (this and the other two wounds with large Mepilex Sacral dressing that can be placed upside down if necessary. Angy Butt RN per Wound Care Team - Labs/Radiology CMP Date: 02/24/18 (called to Angelina to follow renal function) PT/INR Date: 02/21/18 (to monitor INR for discontinuation of lovenox bridge) - Follow Up Care Current Providers and Referrals: Festus Alfaro MD [Primary Care Provider] - As per Instructions Robb Nelson MD [Medical Doctor] - Manish Tsai MD [Medical Doctor] -
[2018-02-20] MEDS: WARFARIN SODIUM 5 MG TAB PO SCH (16:07)
[2018-02-20 16:10] VITALS: BP 139/81
--- NOTE | 2018-02-20 16:23 | ASMTLACE ---
LACE Length of stay for Answers: 4-6 days current admission Acuity / Level of Answers: Yes Care: Did the patient have an inpatient admission? Comorbidities - select Answers: Congestive heart failure all that apply Mild liver or renal disease Other Notes: morbid obesity, HTN, anemia # of Emergency department Answers: 1-2 visits in the last 6 months Score: 13 Date Signed: 02/20/2018 04:23 PM Electronically Signed By:Melanie Ellison RN
--- NOTE | 2018-02-21 02:40 | GDS ---
[f rep st] DISCHARGE SUMMARY DISCHARGE DIAGNOSES: Include: 1. Acute kidney injury, thought secondary to suspected acute tubular necrosis from diuretics and KAY inhibitor use. 2. Hyperkalemia secondary to acute kidney injury, resolved. 3. Metabolic acidosis secondary to acute kidney injury. 4. Chronic diastolic heart failure. 5. Severe pulmonary hypertension. 6. Pressure injury skin breakdown, receiving ongoing outpatient wound care. 7. Morbid obesity. 8. Hypertension. 9. Chronic neuropathy. 10. History of pulmonary embolism on chronic anticoagulation. 11. Acute gout flare. 12. Chronic anemia. HISTORY OF PRESENT ILLNESS: This is a 47-year-old male presenting with acute kidney injury. For det ails of patient's initial presentation, please see the History and Physical dated 02/15/2018. CONSULTATIVE SERVICES: Include: 1. Nephrology. 2. Cardiology. 3. Pulmonary. PROCEDURES: On 02/16/2018, patient had a transthoracic echocardiogram which showed estimated ejectio n fraction of 64% without regional wall motion abnormalities, markedly elevated right ventricular pre ssures, as well as elevated pulmonary artery pressures, mild tricuspid regurgitation. On 02/17/2018, patient had a myocardial perfusion scan which showed no evidence of inducible ischemia. On 02/18/20 18, patient had a right heart catheterization that showed severe pulmonary hypertension. There was a 9 mmHg response to vasodilator challenge. Mean PA pressures did not drop below 40 mmHg. HOSPITAL COURSE BY ISSUE: 1. Severe pulmonary hypertension. V/Q scan was negative for any pulmonary embolic disease. There i s high suspicion for obstructive sleep apnea. The patient is being discharged with immediate outpati ent followup for nocturnal oximetry/polysomnography and pulmonary evaluation. 2. Acute kidney injury. Patient was taken off his KAY, Aldactone and Lasix and had rapid improvemen t in his renal function. He was cautiously restarted on low-dose Lasix, which he has tolerated at th is time. He will be discharged off all KAY, ARB and spironolactone ongoing. 3. Hyperkalemia. This resolved with the resolution of his acute kidney injury. 4. Right-sided heart failure. Patient has been re-initiated on low-dose diuretics with good respons e. He will continue these and be followed in the outpatient setting in the next 7 days by Cardiology . 5. Pressure injury present on admission to the right buttock. Patient will continue outpatient woun d care. 6. Hypertension. As above, patient was taken off his KAY inhibitor, spironolactone and Coreg. His blood pressures are appropriately controlled currently on low-dose Lasix. This will be continued at discharge with retitration of his outpatient regimen by Cardiology in the outpatient setting. 7. Iron-deficiency anemia. The patient did receive IV iron during his acute hospital stay. He will be followed in the outpatient setting. 8. Acute gout flare. Patient was initiated on prednisone 20. He is to complete a 5 day burst in e outpatient setting. MEDICATIONS: At the time of disposition please reference the med rec printed 02/20/2018. FOLLOWUP APPOINTMENTS: Include with Pulmonary Medicine, the patient's primary care, Dr. Alfaro, as well as Cardiology. Patient is being discharged to rehabilitation for a short stay with ongoing strengthening and therapy . PENDING STUDIES: At the time of this dictation are none. TIME SPENT: I spent greater than 30 minutes in the planning and coordination of this discharge. /[id number]/MODL
--- NOTE | 2018-02-21 15:13 | ASDISCHSUM ---
Discharge Information Plan Status:SNF Medically Cleared to Leave:02/20/2018 Discharge Date:02/20/2018 06:35 PM CM D/C Disposition:[facility] ADT D/C Disposition:[facility] Facility Projected Discharge Date:02/20/2018 11:00 AM Transportation at D/C:Wheelchair Van Discharge Delay Reason: Follow-Up Date:02/20/2018 11:00 AM Discharge Slot:3 - 18:01 pm - 12:00 am Final Diagnosis:acute kidney injury on CKD stage III, hyperkalemia, metabolic acidosis, chronic lieberman tolic right sided CHF, pressure injury (right buttock), morbid obesity, HTN, chronic neuropathy, hx o f PE, gout Placement Information Referral Type:*Skilled Nursing/SNF Referral ID:[id number] Provider Name:Ayleen Bobby Huertas [facility] Address 1:[address] Phone Number: Address 2: Fax Number: City:[place] Selection Factors:Patient/Family Choice State:[place] Patient Contact Information Contact Name:PHIL Relationship:Mother Address: Work Phone: City: [facility] Phone: State/Zip Code: Email: Financial Information Financial Class:Medicare Primary Plan Desc:MEDICARE INPATIENT Primary Plan Number:[id number] Secondary Plan Desc: Secondary Plan Number: Assessment Information LACE LACE Length of stay for Answers: 4-6 days current admission Acuity / Level of Answers: Yes Care: Did the patient have an inpatient admission? Comorbidities - select Answers: Congestive heart failure all that apply Mild liver or renal disease Other Notes: morbid obesity, HTN, anemia # of Emergency department Answers: 1-2 visits in the last 6 months Score: 13 Date Signed: 02/20/2018 04:23 PM Electronically Signed By:Melanie Ellison RN [facility] Progress Note CM Note CM Note Notes: 02/16/2018 Case Management Note Discussed pt during multi disciplinary rounds this morning. Pt admitted with weakness, renal failure and gluteal cellulitis. Pt has stage 3 wound on his sacral area. Awaiting ID consult for possible IV abx d/c needs. Pt will likely have d/c wound care needs. Met w/pt daughter Michelle [phone] and her fianceryley Leyva, daughter Mona [phone] and daughter Sadie [phone] this morning. Pt is changing his MDPOA to his three daughters from his mother who per pt and daughters is experiencing memory issues. Provided HealthCare Decision Booklet for pt to fill out, pt declined assistance from case management completing the MDPOA section. Requested pt provide copy to case management to enter into chart once he has filled our form and signed it. [employer] to visit with pt for assistance. Pt reports living with his mother Sada [phone] and is her primary caregiver. Pt reports independence with ADL's prior to admission. Case management d/c poc: to be determined pending outcome of consults and eval recommendations from PT and OT. Case Management to follow. Date Signed: 02/16/2018 02:25 PM Electronically Signed By:Misti Vick RN [facility] Progress Note CM Note CM Note Notes: Pts case discussed in tx rounds. CM met w/ pt, daughter, and daughters nader for dispo planning. Pt is agreeable to going to [facility] and only [facility]. Pt reports that he had a bad experience at a SNF in the past. Referral sent to [facility]. CM to follow. Plan: TBD Date Signed: 02/17/2018 03:13 PM Electronically Signed By:PAYAL Martell [facility] Progress Note CM Note CM Note Notes: Pts case discussed in morning rounds. Pt has been accepted to [facility]. CM met w/ pt and informed him of this. Pt reports that he will have family tour the facility. Pt is having a right heart CATH today at 2PM. CM updated Sarai at [facility] that he will be able to d/c on Thursday at the earliest. CM to follow. Plan: [facility] Date Signed: 02/19/2018 01:38 PM Electronically Signed By:PAYAL Martell Case Management Discharge Plan Note Case Management Discharge Discharge Order Complete? Answers: Yes Patient to Obtain Answers: Other Notes: via [facility] SNF Medications Transportation Arranged Answers: Other Notes: [facility] - wheelchair, arranged by and to be paid for by [facility] Transport will Pick (Date 02/20/2018 06:30 PM & Time) JUVE Complete Answers: No Notes: N/A Case Management Transport Answers: Yes Form Complete Faxed Final Orders Answers: Yes Notes: Sent via [facility] Agency/Facility Transfer Answers: Yes Notes: Sent via [employer] Report Printed & Faxed to Receiving Agency Family Notified Answers: Yes Notes: At bedside Discharge Comments Notes: Reviewed chart, spoke with Dr. Bean and AVINASH Graves regarding discharge plan of care, pt's progress. Per Dr. Bean, pt to discharge to SNF today. Several calls placed to [facility] to inquire about bed availability; left two messages. Call placed to main number ; spoke with Danielle. Message left for admissions team. Call finally received from Vannesa at [facility] at 1500. Per Vannesa, able to accept pt. Vannesa arranged for bariatric wheelchair transport with [facility] at 1830. Update provided to AVINASH Ashby, pt and pt's family. Discharge orders and paperwork sent via [employer]; confirmed receipt with Vannesa. IM signed and placed in pt's chart; copy provided to pt. Pt to follow up as directed. CM available for any further issues or concerns. Discharge Plan: [facility] Date Signed: 02/20/2018 04:51 PM Electronically Signed By:Melanie Ellison RN Intervention Information Intervention Type:*IM-Signed Date of Service:02/20/2018 04:43 PM Patient Type:Inpatient Staff Member:AVINASH Ellison, Melanie Hours: Discipline: Severity: Comment:
== END 2018-02-20 18:35 | DRG 682 ==
LOC: F2W 15:27
PROVIDERS: ADMIT Internal Medicine; ATTEND Internal Medicine
PROC: 4A023N6 Measurement of Cardiac Sampling and Pressure, Right Heart, Percutaneous Approach (ICD-10-PCS; principal; 2018-02-19)
DX: N17.0 Acute kidney failure with tubular necrosis (principal); L89.313 Pressure ulcer of right buttock, stage 3; E87.2 Acidosis; I50.32 Chronic diastolic (congestive) heart failure; I11.0 Hypertensive heart disease with heart failure; E87.5 Hyperkalemia; I27.20 Pulmonary hypertension, unspecified; E66.01 Morbid (severe) obesity due to excess calories; G62.9 Polyneuropathy, unspecified; M10.9 Gout, unspecified; D50.9 Iron deficiency anemia, unspecified; I07.1 Rheumatic tricuspid insufficiency; G47.33 Obstructive sleep apnea (adult) (pediatric); L89.150 Pressure ulcer of sacral region, unstageable; Z86.711 Personal history of pulmonary embolism; Z79.01 Long term (current) use of anticoagulants
CPT/HCPCS: 82607-90; 97116-GP; 97161-GP; 97165-GO; 97535-GO; A9500; A9540; A9558; G8978-GP-CJ; G8979-GP-CI; G8987-GO-CJ; G8988-GO-CI; J0153; J1644; J1650; J2250; J2270; J2785; J2916; J3010; J3370; J7512; Q9967